=== PATIENT | female | born 1995 | race Caucasian/White ===

== ENCOUNTER 2022-09-13 06:07 | Emergency (ER) | payer MEDICAID, SELFPAY ==
[2022-09-13 06:30] VITALS: BP 157/79; PULSE 90; RESP 16; TEMP 36.8; O2SAT 98; BMI 38.2
[2022-09-13 06:33] VITALS: BP 157/79; PULSE 90; RESP 16; TEMP 36.8; O2SAT 98
--- NOTE | 2022-09-13 06:37 | PC.NURSE ---
Pt c/o nausea/vomiting x4 days, diarrhea starting today. Pt has not been able to hold food down. Also complaining of slight chest pain and abdominal discomfort. Pt presents to ER A&Ox4, GCS 15, with warm, dry skin. Pt is requesting a test as her and her boyfriend are unsafe. Test ordered. Pt will be given zofran sublingual, per protocol. Waiting ED provider at this time.
[2022-09-13] MEDS: Ondansetron ODT 4 MG TAB.RAPDIS SUBLINGUAL (06:41)
[2022-09-13 06:52] LABS: MANUAL DIFF FLAG NO
[2022-09-13 06:54] LABS: Basophils Percent Auto 0.3 % (0-2); Eosinophils Absolute Auto 0.1 X10*3/uL (0.0-0.4); Eosinophils Percent Auto 1.5 % (0-4); Hematocrit 40.3 % (37.0-47.0); Hemoglobin 14.5 g/dl (12.0-16.0); Imm Gran Abs Auto 0.02 X10*3/uL (0.00-0.03); Imm Gran Pct Auto 0.2 % (0.0-0.4); Lymphocytes Absolute Auto 1.8 X10*3/uL (1.2-4.9); Lymphocytes Percent Auto 20.9 % (20-40); Mean Corpuscular Hemoglobin 29.6 pg (27.0-33.0); Mean Corpuscular Volume 82.2 fL (80.0-98.0); Monocytes Absolute Auto 0.5 X10*3/uL (0.1-1.2); Monocytes Percent Auto 5.8 % (2-11); Neutrophils Absolute Auto 6.2 x10*3/uL (2.0-8.3); Neutrophils Percent Auto 71.3 % (45-73); Platelet Count 303 X10*3/uL (160-400); Red Cell Distribution Width 12.8 % (11.0-16.0); White Blood Count 8.8 X10*3/uL (4.8-10.8)
[2022-09-13 06:55] LABS: Appearance Urine Clear; Color Urine DK YELLOW; Glucose Urine UA Negative (Negative); Leukocyte Esterase Urine Negative (Negative); Nitrite Urine Negative (Negative); Specific Gravity - Urine 1.025 (1.005-1.025); Urine Blood Negative (Negative); Urine Ketones 15 mg/dL (Negative); Urine Protein Negative (Neg-Trace)
[2022-09-13 06:56] LABS: UPreg QC Valid YES; Urine Pregnancy POSITIVE (NEGATIVE)
[2022-09-13 07:13] LABS: Alanine Aminotransferase 15 U/L (0-31); Albumin Level 4.3 g/dL (3.5-5.0); Alkaline Phosphatase 58 U/L (39-117); Anion Gap 11 (12-20); Aspartate Amino Transferase 14 U/L (5-31); Bilirubin Total 1.6 mg/dL (0.0-1.0); Blood Urea Nitrogen 8 mg/dL (9-16); Calcium 9.8 mg/dL (8.4-10.2); Carbon Dioxide 26 mmol/L (22-29); Chloride 104 mmol/L (96-108); Creatinine Clr Calc Pharmacy 158.2; Estimated Glomerular Filt Rate > 60; Glucose Random 103 mg/dL (60-115); Potassium 3.9 mmol/L (3.3-5.1); Sodium 137 mmol/L (135-145); Total Protein 7.5 g/dL (6.5-8.0)
--- NOTE | 2022-09-13 07:31 | ED.GENADULT ---
HPI - General Adult General Chief complaint: Nausea/Vomiting/Diarrhea Stated complaint: Nausea/ headache Time Seen by Provider: 09/13/22 06:57 Source: patient Mode of arrival: ambulatory Limitations: no limitations History of Present Illness HPI narrative: 27-year-old female history of obesity presenting to the emergency department fatigue, malaise, body aches and pains, diarrhea, headache (diffuse no visual changes) , associated with nausea and vomiting as well also reporting bilateral breast discomfort has been going on for the past few days. Patient tells me she has been trying to get however has had multiple negative home test. She tells me last menstrual period was a few weeks ago all. Patient denies fevers, chills, chest pain, shortness of breath, abd pain, vision changes, dizziness and weakness. No sick contacts. Related Data Previous Rx's Medication Instructions Recorded vit no.95-ferrous 1 tab PO DAILY #30 tabs 09/13/22 fumarate 28 mg-folic acid 800 mcg tablet () Allergies Allergy/AdvReac Type Severity Reaction Status Date / Time apple [APPLES] Allergy Intermediate Lip Unverified 03/29/22 08:41 numbness, Oral Numbness simon [CHERRIES] Allergy Intermediate LIP Unverified 11/13/19 16:30 NUMBNESS, Oral numbness, Oral numbness peach Allergy Intermediate Lip Unverified 03/29/22 08:41 numbness, Oral numbness Penicillins Allergy Intermediate HIVES TO Unverified 11/13/19 16:30 ALL CILLINS amoxicillin Allergy Unknown Hives Unverified 10/27/19 00:00 penicillin V Allergy Unknown Hives Unverified 10/27/19 00:00 Review of Systems Review of Systems: Constitutional : No Weight loss, No Fever, No Chills, + Fatigue, + Malaise ENT/Mouth : No sore throat, No Rhinorrhea Eyes: No Eye Pain, No Swelling, No Redness Cardiovascular : No Chest Pain, No SOB, No Dyspnea on Exertion, No Orthopnea, No Edema, No Palpitations Respiratory : No Cough, No Sputum, No Wheezing Gastrointestinal : + Nausea, + Vomiting, + Diarrhea, No Constipation, No abdominal Pain, No Hematochezia, No Melena Genitourinary : No Dysuria, No Urinary Frequency, No Hematuria, Musculoskeletal : No joint pain, + Myalgias, No Joint Swelling Skin : No Skin Lesions, No rash Neuro : No Weakness, No Numbness, No Dizziness, + Headache Psych : No Anxiety/Panic, No Depression All other systems reviewed and are negative Yes all other systems are reviewed and are negative [facility] Past Medical History Attestation statement: The following information was validated with the patient. Source: old records reviewed and nursing notes reviewed Social History Social History Alcohol intake: never Smoked in Last 30 Days: No Use of substances other than those prescribed or required for medical reasons: Yes Substance Use Type: Marijuana Substance Use Frequency: Daily Advance Directives: No Advance Directives Information Provided: Yes Physical Exam ED Vital Signs: Vital Signs - 24 hr 09/13/22 06:30 09/13/22 06:33 Temperature 98.2 F 98.2 F Pulse Rate 90 90 Respiratory Rate 16 16 Blood Pressure 157/79 H 157/79 H Pulse Oximetry 98 98 Oxygen Delivery Method Room Air Room Air BMI result Body Mass Index 38.2 vss Appearance: Alert.? Oriented X3.? No acute distress.? Head: Normocephalic, atraumatic, no step-offs or deformities Eyes: Pupils equal, round and reactive to light.? ENT: Pharynx normal.? Neck: Normal inspection.? Neck supple.? CVS: Normal heart rate and rhythm.? Pulses normal.? Respiratory: No respiratory distress.? Breath sounds normal.? Abdomen: Soft and nontender. Normal bowel sounds Skin: Skin warm and dry.? Normal skin color.? Normal skin turgor.? Extremities: No lower extremity edema.? No calf ttp. 5/5 strength to bilateral upper and lower extremities Neuro: Oriented X 3.? No motor deficit.? No sensory deficit. CN 2-12 intact . Normal snjgkc-xw-adsi, kyaf-dk-ehuu, steady tandem gait normal coordination. Negative Romberg, pronator drift. 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 Course Reevaluation(s) Reevaluation #1: Patient will be given Tylenol and Zofran for symptoms no that she is other medications have been canceled. CBC appears to be within normal limits. Chemistry unremarkable. Bilirubin is noted to be slightly elevated however no abdominal tenderness to palpation, likely normal variant and possibly secondary did . UA without infection. Urine positive. Patient is too early on to do an ultrasound to conform IUP however an hCG will be obtain. No signs of ectopic , miscarriage at this time. Patient to be discharged home with OBGYN follow-up, and vitamins. Patient symptoms likely secondary to and or viral illness. Time: 07:35 Reevaluation #2: HCG 54819 likely between 6-7 weeks. Patient will follow up with OBGYN. Time: 07:41 Medications Administered Discontinued Medications Generic Name Dose Route Start Last Admin Trade Name Freq PRN Reason Stop Dose Admin Ondansetron HCl 4 mg 09/13/22 06:35 09/13/22 06:41 Ondansetron Odt 4 Mg Tab.Rapdis SUBLINGUAL 09/13/22 06:36 4 mg ONCE ONE Administration Medical Decision Making Medical Decision Making [facility] Narrative: 0733 27-year-old female presents with fatigue, malaise, nausea, headache, body aches and pains, breast discomfort for the past few days. Physical examination benign. This is likely viral illness versus . Will rule out electrolyte abnormality, UTI although unlikely. No abdominal pain unlikely intra-abdominal etiology. No meningeal signs, no signs of intracranial hemorrhage, stroke, posterior stroke. Plan at this time viral testing, urine, test. Differential Diagnosis Differential Diagnoses: The differential diagnosis associated with the presentation includes This is likely viral illness versus . Will rule out electrolyte abnormality, UTI although unlikely. No abdominal pain unlikely intra-abdominal etiology. No meningeal signs, no signs of intracranial hemorrhage, stroke, posterior stroke. Admission/Observation Consideration of admission/observation: Escalation of care including admission/observation considered Unlikely Lab Data [facility] Lab Attestation statement: I reviewed the patient's lab results. 09/13/22 06:48 09/13/22 06:48 Labs: Lab Results 09/13/22 09/13/22 09/13/22 Range/Units 06:42 06:42 06:48 WBC 8.8 (4.8-10.8) X10*3/uL RBC 4.90 (4.20-5.50) X10*6/uL Hgb 14.5 (12.0-16.0) g/dl Hct 40.3 (37.0-47.0) % MCV 82.2 (80.0-98.0) fL MCH 29.6 (27.0-33.0) pg MCHC 36.0 H (31.0-35.0) g/dl RDW 12.8 (11.0-16.0) % Plt Count 303 (160-400) X10*3/uL MPV 9.0 L (9.4-12.3) fL Immature Gran % (Auto) 0.2 (0.0-0.4) % Neut % (Auto) 71.3 (45-73) % Lymph % (Auto) 20.9 (20-40) % [place] % (Auto) 5.8 (2-11) % Eos % (Auto) 1.5 (0-4) % Baso % (Auto) 0.3 (0-2) % Lymph # (Auto) 1.8 (1.2-4.9) X10*3/uL [place] # (Auto) 0.5 (0.1-1.2) X10*3/uL Eos # (Auto) 0.1 (0.0-0.4) X10*3/uL Baso # (Auto) 0.0 (0.0-0.2) X10*3/uL Abs Immat Gran (auto) 0.02 (0.00-0.03) X10*3/uL Absolute Neuts (auto) 6.2 (2.0-8.3) x10*3/uL Absolute Nucleated RBC 0.000 (0.0-0.012) X10*3/uL Nucleated RBC % (auto) 0.0 (0.0-0.2) /100WBC Sodium (135-145) mmol/L Potassium (3.3-5.1) mmol/L Chloride (96-108) mmol/L Carbon Dioxide (22-29) mmol/L Anion Gap (12-20) BUN (9-16) mg/dL Creatinine (0.5-1.4) mg/dL Estim Creat Clear Calc Estimated GFR Random Glucose (60-115) mg/dL Calcium (8.4-10.2) mg/dL Total Bilirubin (0.0-1.0) mg/dL AST (5-31) U/L ALT (0-31) U/L Alkaline Phosphatase (39-117) U/L Total Protein (6.5-8.0) g/dL Albumin (3.5-5.0) g/dL Urine Color DK YELLOW Urine Appearance Clear Urine pH 6.0 (5.0-9.0) Ur Specific [place] 1.025 (1.005-1.025) Urine Protein Negative (Neg-Trace) mg/dL Urine Glucose (UA) Negative (Negative) mg/dL Urine Ketones 15 (Negative) mg/dL Urine Blood Negative (Negative) Urine Nitrite Negative (Negative) Ur Leukocyte Esterase Negative (Negative) Urine Test POSITIVE H (NEGATIVE) 09/13/22 Range/Units 06:48 WBC (4.8-10.8) X10*3/uL RBC (4.20-5.50) X10*6/uL Hgb (12.0-16.0) g/dl Hct (37.0-47.0) % MCV (80.0-98.0) fL MCH (27.0-33.0) pg MCHC (31.0-35.0) g/dl RDW (11.0-16.0) % Plt Count (160-400) X10*3/uL MPV (9.4-12.3) fL Immature Gran % (Auto) (0.0-0.4) % Neut % (Auto) (45-73) % Lymph % (Auto) (20-40) % [place] % (Auto) (2-11) % Eos % (Auto) (0-4) % Baso % (Auto) (0-2) % Lymph # (Auto) (1.2-4.9) X10*3/uL [place] # (Auto) (0.1-1.2) X10*3/uL Eos # (Auto) (0.0-0.4) X10*3/uL Baso # (Auto) (0.0-0.2) X10*3/uL Abs Immat Gran (auto) (0.00-0.03) X10*3/uL Absolute Neuts (auto) (2.0-8.3) x10*3/uL Absolute Nucleated RBC (0.0-0.012) X10*3/uL Nucleated RBC % (auto) (0.0-0.2) /100WBC Sodium 137 (135-145) mmol/L Potassium 3.9 (3.3-5.1) mmol/L Chloride 104 (96-108) mmol/L Carbon Dioxide 26 (22-29) mmol/L Anion Gap 11 L (12-20) BUN 8 L (9-16) mg/dL Creatinine 0.73 (0.5-1.4) mg/dL Estim Creat Clear Calc 158.2 Estimated GFR > 60 Random Glucose 103 (60-115) mg/dL Calcium 9.8 (8.4-10.2) mg/dL Total Bilirubin 1.6 H (0.0-1.0) mg/dL AST 14 (5-31) U/L ALT 15 (0-31) U/L Alkaline Phosphatase 58 (39-117) U/L Total Protein 7.5 (6.5-8.0) g/dL Albumin 4.3 (3.5-5.0) g/dL Urine Color Urine Appearance Urine pH (5.0-9.0) Ur Specific [place] (1.005-1.025) Urine Protein (Neg-Trace) mg/dL Urine Glucose (UA) (Negative) mg/dL Urine Ketones (Negative) mg/dL Urine Blood (Negative) Urine Nitrite (Negative) Ur Leukocyte Esterase (Negative) Urine Test (NEGATIVE) Prescription Management I considered prescription management with: Other ( vitamins) Core Measures AMI core measures followed: Yes Measure exclusions: not indicated Critical Care Time Critical Care Time Critical Care Time: No Discharge Plan Discharge Clinical Impression: , Headache, Nausea Patient Disposition: Home, Self-Care Instructions: (ED), Acute Headache (ED), Acute Nausea and Vomiting (ED) Additional Instructions: Take your medications as prescribed. If you were prescribed antibiotics today, it is important that you take your medication to their entirety, do not skip any doses, do not finish them early. Follow-up with your primary care provider this week. Return to the emergency department with new or worsening symptoms. Such as fevers, chills, chest pain, shortness of breath, nausea, vomiting, dizziness, headache, vision changes, lethargy In case of emergency call 911 vitamins have been sent to her pharmacy, please take these daily. Your urine was positive, it is too soon to obtain an ultrasound to confirm intrauterine should follow-up with OBGYN, call today to schedule an appointment. Return with any red flag symptoms such as abdominal pain, vaginal bleeding. Or with any abdominal trauma. Your BHCG was [address] which means your between 6-7 weeks Prescriptions: New PNV cmb#95-ferrous fumarate-FA [] 28 mg iron- 800 mcg tablet 1 tab PO DAILY Qty: 30 0RF Referrals: Physician,None [Primary Care Provider] - 2 days Ruben Jacobson MD [Physician] - 1 day
== END 2022-09-13 07:54 | disposition home or self-care (01) ==
PROVIDERS: Emergency Provider Emergency Medicine
DX: R51.9 Headache, unspecified (principal); R11.2 Nausea with vomiting, unspecified; R19.7 Diarrhea, unspecified; Z33.1 Pregnant state, incidental; F12.90 Cannabis use, unspecified, uncomplicated
CPT/HCPCS: 36415; 80053; 81003; 81025; 84702; 85025; 99283; 99284

== ENCOUNTER 2022-09-17 00:27 | Emergency (ER) | payer MEDICAID, SELFPAY ==
--- NOTE | ~2022-09-17 | US_ITS ---
EXAMINATION: US OBSTETRICAL ULTRASOUND CLINICAL INFORMATION: Question ectopic COMPARISON: None available. LMP: 07/20/2022. Gestational age by maternal dates is 8 weeks 3 days. Estimated date of delivery by maternal dates is 04/26/2023. TECHNIQUE: Transabdominal and transvaginal first trimester OB ultrasound. Transvaginal exam was performed for better visualization of the gestational sac. FINDINGS: There is a single intrauterine gestational sac with visible yolk sac, embryo/fetus, and cardiac activity. There is no significant subchorionic hemorrhage or hematoma. HR: 161 beats per minute. CRL (crown rump length): 0.92 cm (7 weeks 0 days +/- 4 days). TEVIN (estimated date of delivery): 05/06/2023 +/- 4 days. MATERNAL ADNEXA: The right maternal ovary is not seen. Left ovary is not well visualized. The left maternal ovary measures 2.3 x 1.2 x 1.1 cm. There is no significant maternal adnexal mass. No maternal pelvic ascites. US/US OB <= 14 weeks fetus IMPRESSION: 1. Single intrauterine gestation with ultrasound gestational age of 7 weeks 0 days +/- 4 days. 2. Estimated date of delivery is 05/06/2023 +/- 4 days. 3. Right ovary not seen.
[2022-09-17 00:30] VITALS: BP 152/88; PULSE 94; RESP 20; TEMP 36.8; O2SAT 100; BMI 36.8
[2022-09-17 01:49] LABS: Basophils Percent Auto 0.1 % (0-2); Eosinophils Percent Auto 0.1 % (0-4); Hematocrit 38.2 % (37.0-47.0); Hemoglobin 13.9 g/dl (12.0-16.0); Imm Gran Abs Auto 0.04 X10*3/uL (0.00-0.03); Imm Gran Pct Auto 0.3 % (0.0-0.4); Lymphocytes Absolute Auto 0.7 X10*3/uL (1.2-4.9); MANUAL DIFF FLAG SCAN; Mean Corpuscular HGB Conc 36.4 g/dl (31.0-35.0); Mean Corpuscular Hemoglobin 29.6 pg (27.0-33.0); Mean Corpuscular Volume 81.3 fL (80.0-98.0); Mean Platelet Volume 9.2 fL (9.4-12.3); Monocytes Absolute Auto 0.2 X10*3/uL (0.1-1.2); Monocytes Percent Auto 1.1 % (2-11); Neutrophils Percent Auto 93.4 % (45-73); Platelet Count 302 X10*3/uL (160-400); Red Cell Distribution Width 12.6 % (11.0-16.0); SCAN SMEAR FLAG 1
[2022-09-17 01:50] LABS: Appearance Urine Clear; Color Urine Dark Yellow; Glucose Urine UA Negative (Negative); Leukocyte Esterase Urine Negative (Negative); Nitrite Urine Negative (Negative); PH 5.5 (5.0-9.0); Specific Gravity - Urine >= 1.030 (1.005-1.025); UMIC TRIGGER UACC YES; Urine Blood Negative (Negative); Urine Ketones >=160 mg/dL (Negative); Urine Protein 100 (2+) mg/dL (Neg-Trace)
[2022-09-17 01:51] LABS: UPreg QC Valid YES; Urine Pregnancy POSITIVE (NEGATIVE)
[2022-09-17 01:53] LABS: Bacteria Urine None Seen (None Seen); Hyaline Casts Urine 0-2 /LPF (0-2); RBC Urine 0-2 /HPF (0-2); WBC Urine 0-5 /HPF (0-5)
[2022-09-17 02:07] LABS: Alanine Aminotransferase 23 U/L (0-31); Albumin Level 4.5 g/dL (3.5-5.0); Alkaline Phosphatase 58 U/L (39-117); Anion Gap 16 (12-20); Aspartate Amino Transferase 19 U/L (5-31); Bilirubin Total 0.8 mg/dL (0.0-1.0); Blood Urea Nitrogen 8 mg/dL (9-16); Calcium 9.9 mg/dL (8.4-10.2); Carbon Dioxide 22 mmol/L (22-29); Chloride 104 mmol/L (96-108); Creatinine Clr Calc Pharmacy 161.8; Estimated Glomerular Filt Rate > 60; Glucose Random 140 mg/dL (60-115); Potassium 3.8 mmol/L (3.3-5.1); Sodium 138 mmol/L (135-145); Total Protein 7.9 g/dL (6.5-8.0)
[2022-09-17 02:38] LABS: SLIDE REVIEW VERIFIED
--- NOTE | 2022-09-17 03:07 | ED_ITS ---
HPI - Nausea/Vomiting/Diarrhea General Chief complaint: OB Stated complaint: Vomiting Time Seen by Provider: 09/17/22 03:01 Source: patient Mode of arrival: ambulatory Limitations: no limitations History of Present Illness HPI Narrative: Patient about 7 weeks primi comes here for increased vomiting since 1 6:00 last night unable to hold any solid down or liquids no significant abdominal pain Related Data Previous Rx's Medication Instructions Recorded vit no.95-ferrous 1 tab PO DAILY #30 tabs 09/13/22 fumarate 28 mg-folic acid 800 mcg tablet () ondansetron 4 mg disintegrating 4 mg PO Q6-8H PRN nausea and 09/17/22 tablet vomiting #20 tabs pyridoxine (vitamin B6) 25 mg 25 mg PO TID PRN nausea and 09/17/22 tablet vomiting #60 tabs Allergies Allergy/AdvReac Type Severity Reaction Status Date / Time apple [APPLES] Allergy Intermediate Lip Unverified 03/29/22 08:41 numbness, Oral Numbness simon [CHERRIES] Allergy Intermediate LIP Unverified 11/13/19 16:30 NUMBNESS, Oral numbness, Oral numbness peach Allergy Intermediate Lip Unverified 03/29/22 08:41 numbness, Oral numbness Penicillins Allergy Intermediate HIVES TO Unverified 11/13/19 16:30 ALL CILLINS amoxicillin Allergy Unknown Hives Unverified 10/27/19 00:00 penicillin V Allergy Unknown Hives Unverified 10/27/19 00:00 Review of Systems Review of Systems: Yes all other systems are reviewed and are negative [facility] Social History Social History Alcohol intake: never Smoked in Last 30 Days: No Use of substances other than those prescribed or required for medical reasons: No Substance Use Type: Marijuana Advance Directives: No Advance Directives Information Provided: Yes Patient : Yes Physical Exam Vital Signs: Vital Signs: Last Vital Signs Temp 98.1 F 09/17/22 05:39 Pulse 90 09/17/22 05:39 Resp 14 09/17/22 05:39 BP 149/86 H 09/17/22 05:39 Pulse Ox 96 09/17/22 05:39 O2 Del Method Room Air 09/17/22 05:39 BMI result Body Mass Index 36.8 Appearance: Alert. Oriented X3. No acute distress. Eyes: No pallor/ icterus ENT: Pharynx normal. Oral Mucosa moist Neck: Normal inspection. Neck supple. CVS: Normal heart rate and rhythm. Pulses normal. Respiratory: No respiratory distress. Equal air entry bilateral, no wheezing/rales/rhonchi Abdomen: Soft mild epigastric tenderness. Bowel sounds are present, no mass palpable, no CVA tenderness Skin: Skin warm and dry. Normal skin color. Normal skin turgor. Extremities: No lower extremity edema. No calf tenderness Neuro: Oriented X 3. No motor deficit. No sensory deficit.No cerebellar signs , cranial nerves II-XII intact Medications Administered Discontinued Medications Generic Name Dose Route Start Last Admin Trade Name Freq PRN Reason Stop Dose Admin Al Hydroxide/Mg Hydroxide 30 ml 09/17/22 04:35 09/17/22 04:57 Magnesium Hydrox/Alum Hydrox 30 Ml Oral.Susp PO 09/17/22 04:36 30 ml ONCE ONE Administration Famotidine 20 mg 09/17/22 04:35 09/17/22 04:57 Famotidine/Pf 20 Mg/2 Ml Vial IVPUSH 09/17/22 04:36 20 mg ONCE ONE Administration Sodium Chloride 1,000 mls @ 999 mls/hr 09/17/22 03:13 09/17/22 05:39 Ns IV 09/17/22 04:13 Infused .Q1H1M ONE Infusion Ondansetron HCl 4 mg 09/17/22 03:13 09/17/22 03:25 Ondansetron Hcl 4 Mg/2 Ml Vial IVPUSH 09/17/22 03:14 4 mg ONCE ONE Administration Medical Decision Making Medical Decision Making [facility] Narrative: Patient with hyperemesis gravidarum 1st received IV fluids and Zofran still vomiting will give another dose of Zofran another L bolus re-evaluated before discharge signed out to Dr MERAZ Lab Data [facility] Lab Attestation statement: I reviewed the patient's lab results. 09/17/22 01:42 09/17/22 01:42 Labs: Lab Results 09/17/22 09/17/22 09/17/22 Range/Units 01:42 01:42 01:43 WBC 14.0 H (4.8-10.8) X10*3/uL RBC 4.70 (4.20-5.50) X10*6/uL Hgb 13.9 (12.0-16.0) g/dl Hct 38.2 (37.0-47.0) % MCV 81.3 (80.0-98.0) fL MCH 29.6 (27.0-33.0) pg MCHC 36.4 H (31.0-35.0) g/dl RDW 12.6 (11.0-16.0) % Plt Count 302 (160-400) X10*3/uL MPV 9.2 L (9.4-12.3) fL Immature Gran % (Auto) 0.3 (0.0-0.4) % Neut % (Auto) 93.4 H (45-73) % Lymph % (Auto) 5.0 L (20-40) % [place] % (Auto) 1.1 L (2-11) % Eos % (Auto) 0.1 (0-4) % Baso % (Auto) 0.1 (0-2) % Lymph # (Auto) 0.7 L (1.2-4.9) X10*3/uL [place] # (Auto) 0.2 (0.1-1.2) X10*3/uL Eos # (Auto) 0.0 (0.0-0.4) X10*3/uL Baso # (Auto) 0.0 (0.0-0.2) X10*3/uL Abs Immat Gran (auto) 0.04 H (0.00-0.03) X10*3/uL Absolute Neuts (auto) 13.0 H (2.0-8.3) x10*3/uL Absolute Nucleated RBC 0.000 (0.0-0.012) X10*3/uL Nucleated RBC % (auto) 0.0 (0.0-0.2) /100WBC Smear Tech's Comments VERIFIED Sodium 138 (135-145) mmol/L Potassium 3.8 (3.3-5.1) mmol/L Chloride 104 (96-108) mmol/L Carbon Dioxide 22 (22-29) mmol/L Anion Gap 16 (12-20) BUN 8 L (9-16) mg/dL Creatinine 0.70 (0.5-1.4) mg/dL Estim Creat Clear Calc 161.8 Estimated GFR > 60 Random Glucose 140 H (60-115) mg/dL Calcium 9.9 (8.4-10.2) mg/dL Total Bilirubin 0.8 (0.0-1.0) mg/dL AST 19 (5-31) U/L ALT 23 (0-31) U/L Alkaline Phosphatase 58 (39-117) U/L Total Protein 7.9 (6.5-8.0) g/dL Albumin 4.5 (3.5-5.0) g/dL Urine Color Dark Yellow Urine Appearance Clear Urine pH 5.5 (5.0-9.0) Ur Specific [place] >= 1.030 H (1.005-1.025) Urine Protein 100 (2+) H (Neg-Trace) mg/dL Urine Glucose (UA) Negative (Negative) mg/dL Urine Ketones >=160 (Negative) mg/dL Urine Blood Negative (Negative) Urine Nitrite Negative (Negative) Ur Leukocyte Esterase Negative (Negative) Urine RBC 0-2 (0-2) /HPF Urine WBC 0-5 (0-5) /HPF Ur Squamous Epith Cells 3-5 (0-2) /HPF Urine Bacteria None Seen (None Seen) Hyaline Casts 0-2 (0-2) /LPF Urine Test (NEGATIVE) 09/17/22 Range/Units 01:43 WBC (4.8-10.8) X10*3/uL RBC (4.20-5.50) X10*6/uL Hgb (12.0-16.0) g/dl Hct (37.0-47.0) % MCV (80.0-98.0) fL MCH (27.0-33.0) pg MCHC (31.0-35.0) g/dl RDW (11.0-16.0) % Plt Count (160-400) X10*3/uL MPV (9.4-12.3) fL Immature Gran % (Auto) (0.0-0.4) % Neut % (Auto) (45-73) % Lymph % (Auto) (20-40) % [place] % (Auto) (2-11) % Eos % (Auto) (0-4) % Baso % (Auto) (0-2) % Lymph # (Auto) (1.2-4.9) X10*3/uL [place] # (Auto) (0.1-1.2) X10*3/uL Eos # (Auto) (0.0-0.4) X10*3/uL Baso # (Auto) (0.0-0.2) X10*3/uL Abs Immat Gran (auto) (0.00-0.03) X10*3/uL Absolute Neuts (auto) (2.0-8.3) x10*3/uL Absolute Nucleated RBC (0.0-0.012) X10*3/uL Nucleated RBC % (auto) (0.0-0.2) /100WBC Smear Tech's Comments Sodium (135-145) mmol/L Potassium (3.3-5.1) mmol/L Chloride (96-108) mmol/L Carbon Dioxide (22-29) mmol/L Anion Gap (12-20) BUN (9-16) mg/dL Creatinine (0.5-1.4) mg/dL Estim Creat Clear Calc Estimated GFR Random Glucose (60-115) mg/dL Calcium (8.4-10.2) mg/dL Total Bilirubin (0.0-1.0) mg/dL AST (5-31) U/L ALT (0-31) U/L Alkaline Phosphatase (39-117) U/L Total Protein (6.5-8.0) g/dL Albumin (3.5-5.0) g/dL Urine Color Urine Appearance Urine pH (5.0-9.0) Ur Specific [place] (1.005-1.025) Urine Protein (Neg-Trace) mg/dL Urine Glucose (UA) (Negative) mg/dL Urine Ketones (Negative) mg/dL Urine Blood (Negative) Urine Nitrite (Negative) Ur Leukocyte Esterase (Negative) Urine RBC (0-2) /HPF Urine WBC (0-5) /HPF Ur Squamous Epith Cells (0-2) /HPF Urine Bacteria (None Seen) Hyaline Casts (0-2) /LPF Urine Test POSITIVE H (NEGATIVE) Discharge Plan Discharge Clinical Impression: Hyperemesis gravidarum Patient Disposition: Still a Patient Instructions: Hyperemesis Gravidarum (ED) Additional Instructions: Drink plenty of fluids Medicine for nausea as prescribed Follow-up with your dispatcher clerk Prescriptions: New ondansetron 4 mg tablet,disintegrating 4 mg PO Q6-8H PRN (Reason: nausea and vomiting) Qty: 20 0RF pyridoxine (vitamin B6) 25 mg tablet 25 mg PO TID PRN (Reason: nausea and vomiting) Qty: 60 0RF No Action PNV cmb#95-ferrous fumarate-FA [] 28 mg iron- 800 mcg tablet 1 tab PO DAILY Qty: 30 0RF
[2022-09-17] MEDS: ondansetron HCL 4 MG/2 ML VIAL IVPUSH ×2 (03:25→07:01)
[2022-09-17] MEDS: 0.9 % Sodium Chloride 1,000 ML 999 ML IV ×3 (03:25→09:02)
[2022-09-17 03:30] VITALS: BP 149/83; PULSE 82; RESP 14; TEMP 37.1; O2SAT 96
[2022-09-17] MEDS: Famotidine/PF 20 MG/2 ML VIAL IVPUSH (04:57)
[2022-09-17] MEDS: Magnesium Hydrox/Alum Hydrox 30 ML ORAL.SUSP PO (04:57)
[2022-09-17 05:39] VITALS: BP 149/86; PULSE 90; RESP 14; TEMP 36.7; O2SAT 96
--- NOTE | 2022-09-17 05:41 | PC.NURSE ---
Pt reports headache improved. C/O lower abd cramping, 2/10. Able to tolerate PO apple juice with no N/V
[2022-09-17 08:08] VITALS: BP 155/77; PULSE 86; RESP 16; TEMP 36.8; O2SAT 99
[2022-09-17] MEDS: Metoclopramide HCl 10 MG/2 ML VIAL IVPUSH (09:02)
--- NOTE | 2022-09-17 09:14 | PC.NURSE ---
pt continues to vomit after attempting PO liquids and crackers.
--- NOTE | 2022-09-17 09:22 | PC.NURSE ---
pt off unit to U/S
== END 2022-09-17 12:18 | disposition home or self-care (01) ==
PROVIDERS: Internal Medicine; Emergency Provider Emergency Medicine Emergency Medical Services
DX: O21.0 Mild hyperemesis gravidarum (principal); O99.321 Drug use complicating pregnancy, first trimester; F12.90 Cannabis use, unspecified, uncomplicated; Z3A.01 Less than 8 weeks gestation of pregnancy
CPT/HCPCS: 36415; 76801; 80053; 81001; 81025; 84702; 85025; 96361; 96374; 96375; 96376; 99284; J2405; J2765

== ENCOUNTER 2022-09-21 08:31 | Outpatient (AMB) | payer MEDICAID, SELFPAY ==
[2022-09-21 08:47] VITALS: BP 140/108; BMI 35.7
--- NOTE | 2022-09-21 08:47 | A.OFFVIS_ITS ---
Intake Vital Signs 09/21/22 08:47 Height 5 ft 9 in Weight 242 lb BMI 35.7 BP 140/108 H Intake Visit Reasons: New patient consult dimitry Tong Intake Note: LMP 07/20/22 EDC 04/26/23 9w pt c/o n&v and chest pain The patient agreed to use of a manager medical writing during this encounter. Scribed for [employer] by Juli Song, manager medical writing, on 09/21/2022 at 9:15 am EST. Allergies apple [APPLES] Allergy (Intermediate, Verified 09/21/22 08:54) Lip numbness, Oral Numbness simon [CHERRIES] Allergy (Intermediate, Verified 09/21/22 08:54) LIP NUMBNESS, Oral numbness, Oral numbness peach Allergy (Intermediate, Verified 09/21/22 08:54) Lip numbness, Oral numbness Penicillins Allergy (Intermediate, Verified 09/21/22 08:54) HIVES TO ALL CILLINS amoxicillin Allergy (Unknown, Verified 09/21/22 08:54) Hives penicillin V Allergy (Unknown, Verified 09/21/22 08:54) Hives Is last menstrual period known: Yes Last menstrual period: 07/20/22 HPI HPI Comments History of Present Illness Details She is a new patient here for a consult. Corine Marmolejo, LMP 07/20/22 EDC 04/26/23 ~8w, who is actively vomiting in the office. Presents with her mother Ailce. She reports chest pain, acid reflux, headache, unable to keep anything down for the last day. Denies dizziness. Urine ketones positive. Seen in ED for hyperemesis on 09/17/22, and on 09/13/22 for: fatigue, malaise, body aches and pains, diarrhea, headache (diffuse no visual changes) , associated with nausea and vomiting as well also reporting bilateral breast discomfort has been going on for the past few days.? BP ranges for last visits: today-140/108, 09/17/22-149/86, 09/13/22-157/79. She is taking Zofran at home for nausea, OTD, and thinks she was not able to keep the am dose down today. [facility] Medical History (Updated 09/21/22 @ 11:00 by Juli Song) Acid reflux Asthma Elevated blood pressure reading Hyperemesis affecting , antepartum Missed menses Positive test Urine ketones Vomiting Surgical History (Updated 09/21/22 @ 08:56 by LUDMILA Montoya) History of tonsillectomy and adenoidectomy Family History (Updated 09/21/22 @ 08:56 by LUDMILA Montoya) Maternal Grandmother Colon cancer Social History (Updated 09/21/22 @ 08:57 by LUDMILA Montoya) Alcohol intake: never Patient Tobacco Use Status: Never used Tobacco Substance Use Type: Marijuana Advance Directives: No Female Reproductive History Menstrual Duration of menses: 6-7 days Date of last menstrual period: 07/20/22 Total pregnancies: 1 Physical Exam Vital Signs: Last Vital Signs BP 140/108 H 09/21/22 08:47 BMI result Body Mass Index 35.7 Const Other: actively nausea/vomiting in the office today. General: cooperative and awake Results AMB Urinalysis, Automated UA Leukoctes 0.5 Corinne/uL Last Edit by LUDMILA Montoya on 09/21/22 09:0 2 UA Nitrite Negative Last Edit by LUDMILA Montoya on 09/21/22 09:02 UA Urobilinogen 0.5 mg/dL Last Edit by LUDMILA Montoya on 09/21/22 09 :02 UA Protein 2 mg/dL Last Edit by LUDMILA Montoya on 09/21/22 09:02 UA pH 6.0 Last Edit by LUDMILA Montoya on 09/21/22 09:02 UA Blood 0.5 Antwon/uL Last Edit by LUDMILA Montoya on 09/21/22 09:02 UA Specific [place] 1.025 Last Edit by LUDMILA Montoya on 09/21/22 09:02 UA Ketone Positive Last Edit by LUDMILA Montoya on 09/21/22 09:02 3+ Bhavani Lipscomb 09/21/22 09:02 UA Bilirubin 0 mg/dL Last Edit by LUDMILA Montoya on 09/21/22 09:02 UA Glucose 0 mg/dL Last Edit by LUDMILA Montoya on 09/21/22 09:02 Results Reviewed Results Reviewed: Laboratory Last Values Urine pH (Auto) 6.0 09/21/22 09:01 Specific [place] (Auto) 1.025 09/21/22 09:01 Urine Protein (Auto) 2 mg/dL 09/21/22 09:01 Glucose (UA)(Auto) 0 mg/dL 09/21/22 09:01 Urine Ketones (Auto) Positive 09/21/22 09:01 Urine Blood (Auto) 0.5 Antwon/uL 09/21/22 09:01 Urine Nitrite (Auto) Negative 09/21/22 09:01 Urine Bilirubin (Auto) 0 mg/dL 09/21/22 09:01 Urine Urobilinogen (Auto) 0.5 mg/dL 09/21/22 09:01 Leukocyte Esterase (Auto) 0.5 Corinne/uL 09/21/22 09:01 Patient: Nicol Castellanos MR#: [id number] : 1995 Acct:[id number] Age/Sex: 27 / F ADM Date: 09/17/22 Loc: HO.ED Attending Dr: Ordering Physician: Rosemary Miles MD Date of Service: 09/17/22 Procedure(s): US OB <= 14 weeks fetus Accession Number(s): [id number] cc: Rosemary Miles MD~ EXAMINATION:? US OBSTETRICAL ULTRASOUND CLINICAL INFORMATION:? Question ectopic COMPARISON:? None available.? LMP: 07/20/2022. Gestational age by maternal dates is 8 weeks 3 days. Estimated date of delivery by maternal dates is 04/26/2023. TECHNIQUE: Transabdominal and transvaginal first trimester OB ultrasound. Transvaginal exam was performed for better visualization of the gestational sac. ? FINDINGS: There is a single intrauterine gestational sac with visible yolk sac, embryo/fetus, and cardiac activity.? There is no significant subchorionic hemorrhage or hematoma. HR:? 161 beats per minute. CRL (crown rump length): ? 0.92 cm (7 weeks 0 days +/- 4 days). TEVIN (estimated date of delivery):? 05/06/2023 +/- 4 days. ? MATERNAL ADNEXA: ? ? The right maternal ovary is not seen. Left ovary is not well visualized. The left maternal ovary measures 2.3 x 1.2 x 1.1 cm. There is no significant maternal adnexal mass.? No maternal pelvic ascites. US/US OB <= 14 weeks fetus IMPRESSION: 1. Single intrauterine gestation with ultrasound gestational age of? 7 weeks 0 days +/- 4 days. 2. Estimated date of delivery is 05/06/2023 +/- 4 days. 3. Right ovary not seen. Assessment & Plan Assessment & Plan (1) Missed menses: Code(s): N92.6 - Irregular menstruation, unspecified Plan: Discussed plan of care today: Return to ED for treatment and evaluation now. Accompanied by office staff to the ED via wheelchair due to her current symptoms of nausea, vomiting, chest pains, acid reflux, headache and elevated blood pressure at today's visit. All of her questions and concerns were addressed to the best of my ability and shared decision making. She is agreeable to plan of care. Reschedule consult TBD. (2) Positive test: Code(s): Z32.01 - Encounter for test, result positive (3) Elevated blood pressure reading: Code(s): R03.0 - Elevated blood-pressure reading, without diagnosis of hypertension (4) Vomiting: Code(s): R11.10 - Vomiting, unspecified (5) Acid reflux: Code(s): K21.9 - Gastro-esophageal reflux disease without esophagitis (6) Headache: Code(s): R51.9 - Headache, unspecified (7) Urine ketones: Code(s): R82.4 - Acetonuria Orders: Orders AMB Urinalysis Automated Today Z34.90 - Encounter for supervision of normal , unspecified, unspecified trimester Coding Level of Care Code New Pt Level 3 (12097) Diagnoses Missed menses N92.6 Positive test Z32.01 Elevated blood pressure reading R03.0 Vomiting R11.10 Acid reflux K21.9 Headache R51.9 Urine ketones R82.4
== END 2022-09-21 10:08 | disposition home or self-care (01) ==
LOC: HO.HWSW 08:31
PROVIDERS: Visit Provider Advanced Practice Midwife
DX: N92.6 Irregular menstruation, unspecified (principal); Z32.01 Encounter for pregnancy test, result positive; R03.0 Elevated blood-pressure reading, without diagnosis of hypertension; R11.10 Vomiting, unspecified; K21.9 Gastro-esophageal reflux disease without esophagitis; R51.9 Headache, unspecified; R82.4 Acetonuria; Z34.90 Encounter for supervision of normal pregnancy, unspecified, unspecified trimester
CPT/HCPCS: 99203

== ENCOUNTER → 2022-09-21 08:31 | Outpatient (BNVA) | payer MEDICAID, SELFPAY | PROVIDERS: Visit Provider Advanced Practice Midwife | DX: N92.6 Irregular menstruation, unspecified (principal); R03.0 Elevated blood-pressure reading, without diagnosis of hypertension; R11.10 Vomiting, unspecified; R51.9 Headache, unspecified; R82.4 Acetonuria; K21.9 Gastro-esophageal reflux disease without esophagitis; Z32.01 Encounter for pregnancy test, result positive | CPT/HCPCS: 81003; 99203 ==

== ENCOUNTER 2022-09-21 09:23 | Inpatient (IN) | payer MEDICAID, SELFPAY ==
--- NOTE | ~2022-09-21 | US_ITS ---
EXAMINATION: US ABDOMEN LIMITED CLINICAL INFORMATION: Abdominal pain, nausea and vomiting, 9 weeks . COMPARISON: None available. TECHNIQUE: Real-time imaging of the right upper quadrant abdominal viscera. FINDINGS: PANCREAS: Visualized portions of pancreas unremarkable, the tail is not well visualized. LIVER: Increased hepatic echogenicity suggesting hepatic steatosis. The liver is normal in size. The liver contour is normal. No focal hepatic lesion. There is no intrahepatic biliary duct dilatation seen. GALLBLADDER: Intraluminal gallbladder sludge noted. The gallbladder is physiologically distended without evidence of stones, polyps, wall thickening or pericholecystic fluid. Sonographic Brown sign is negative. COMMON BILE DUCT: Normal in caliber measuring 0.2 cm in diameter. RIGHT KIDNEY: Normal. No hydronephrosis. No renal calculi or focal parenchymal lesions. The kidney measures 12.4 cm in maximum dimension. FREE FLUID: None. US/US abdomen limited IMPRESSION: 1. Increased hepatic echogenicity suggesting hepatic steatosis. 2. Intraluminal gallbladder sludge noted without sonographic evidence of acute cholecystitis.
[2022-09-21 09:34] VITALS: BP 156/103; PULSE 95; RESP 19; TEMP 35.9; O2SAT 100; BMI 35.9
--- NOTE | 2022-09-21 09:45 | ECG_ITS ---
Test Reason : HYPERTENSION Blood Pressure : / mmHG Vent. Rate : 062 BPM Atrial Rate : 062 BPM P-R Int : 122 ms QRS Dur : 100 ms QT Int : 458 ms P-R-T Axes : 043 068 005 degrees QTc Int : 464 ms Sinus rhythm with marked sinus arrhythmia Nonspecific ST abnormality When compared with ECG of 15-NOV-2013 23:00, No significant change was found Referred By: Generic ED Physician Electronically Signed By:AGUS DESAI MD
[2022-09-21 11:13] LABS: MANUAL DIFF FLAG NO
[2022-09-21 11:22] LABS: Basophils Percent Auto 0.3 % (0-2); Eosinophils Percent Auto 0.1 % (0-4); Hematocrit 41.6 % (37.0-47.0); Hemoglobin 15.2 g/dl (12.0-16.0); Imm Gran Abs Auto 0.03 X10*3/uL (0.00-0.03); Imm Gran Pct Auto 0.2 % (0.0-0.4); Lymphocytes Absolute Auto 1.3 X10*3/uL (1.2-4.9); Lymphocytes Percent Auto 9.1 % (20-40); Mean Corpuscular HGB Conc 36.5 g/dl (31.0-35.0); Mean Corpuscular Hemoglobin 29.3 pg (27.0-33.0); Mean Corpuscular Volume 80.3 fL (80.0-98.0); Mean Platelet Volume 9.6 fL (9.4-12.3); Monocytes Absolute Auto 0.7 X10*3/uL (0.1-1.2); Monocytes Percent Auto 4.8 % (2-11); Neutrophils Absolute Auto 11.9 x10*3/uL (2.0-8.3); Neutrophils Percent Auto 85.5 % (45-73); Platelet Count 323 X10*3/uL (160-400); Red Blood Count 5.18 X10*6/uL (4.20-5.50); Red Cell Distribution Width 12.2 % (11.0-16.0); White Blood Count 13.9 X10*3/uL (4.8-10.8)
[2022-09-21 11:29] LABS: Alanine Aminotransferase 75 U/L (0-31); Albumin Level 4.2 g/dL (3.5-5.0); Alkaline Phosphatase 47 U/L (39-117); Anion Gap 18 (12-20); Aspartate Amino Transferase 33 U/L (5-31); Blood Urea Nitrogen 9 mg/dL (9-16); Calcium 9.7 mg/dL (8.4-10.2); Carbon Dioxide 18 mmol/L (22-29); Chloride 103 mmol/L (96-108); Creatinine Clr Calc Pharmacy 166.8; Estimated Glomerular Filt Rate > 60; Glucose Random 106 mg/dL (60-115); Potassium 3.2 mmol/L (3.3-5.1); Sodium 136 mmol/L (135-145); Total Protein 7.5 g/dL (6.5-8.0)
--- NOTE | 2022-09-21 12:26 | ED_ITS ---
HPI - General Adult General Chief complaint: General Medical Stated complaint: vomiting high bp Time Seen by Provider: 09/21/22 12:25 Source: patient Mode of arrival: ambulatory Limitations: no limitations History of Present Illness HPI narrative: 27-year-old female , 7 weeks 4 days based on ultrasound EDC 05/06/2023 who presents emergency department for evaluation of nausea, vomiting, abdominal pain and elevated blood pressure. The patient was seen here in the emergency department on 09/17/2022 for nausea vomiting and abdominal pain. She was treated with IV fluids and Zofran and discharged home with Zofran ODT. Patient had an ultrasound of that time which revealed a single intrauterine which was 7 weeks and 0 days with an EDC of 05/06/2023. Patient states that since being discharged from the emergency department she has continued to vomit. She states she has had multiple episodes of vomiting per day and has been only able to hold on small amounts of fluid with very minimal food intake. The patient was seen today for an OBGYN follow-up 2 day. I did review the notes, the patient had an elevated blood pressure of 140/108 and was referred to the emergency department for further evaluate. She denied fever, she states she was having occasional chills. She has had persistent nausea, vomiting and diarrhea. She denied dysuria but has noted urinary frequency. Related Data Previous Rx's Medication Instructions Recorded vit no.95-ferrous 1 tab PO DAILY #30 tabs 09/13/22 fumarate 28 mg-folic acid 800 mcg tablet () ondansetron 4 mg disintegrating 4 mg PO Q6-8H PRN nausea and 09/17/22 tablet vomiting #20 tabs pyridoxine (vitamin B6) 25 mg 25 mg PO TID PRN nausea and 09/17/22 tablet vomiting #60 tabs Allergies Allergy/AdvReac Type Severity Reaction Status Date / Time apple [APPLES] Allergy Intermediate Lip Verified 09/21/22 08:54 numbness, Oral Numbness simon [CHERRIES] Allergy Intermediate LIP Verified 09/21/22 08:54 NUMBNESS, Oral numbness, Oral numbness peach Allergy Intermediate Lip Verified 09/21/22 08:54 numbness, Oral numbness Penicillins Allergy Intermediate HIVES TO Verified 09/21/22 08:54 ALL CILLINS amoxicillin Allergy Unknown Hives Verified 09/21/22 08:54 penicillin V Allergy Unknown Hives Verified 09/21/22 08:54 Review of Systems Review of Systems: Yes all other systems are reviewed and are negative [facility] Past Medical History [facility] Narrative: Past medical history: The patient denies tobacco, alcohol and drug use. Medical History Acid reflux Asthma Elevated blood pressure reading Hyperemesis affecting , antepartum Missed menses Positive test Urine ketones Vomiting Surgical History History of tonsillectomy and adenoidectomy Family History Family History Maternal Grandmother Colon cancer Social History Social History Alcohol intake: never Patient Tobacco Use Status: Never used Tobacco Substance Use Type: Marijuana Advance Directives: No Physical Exam ED Vital Signs: Vital Signs - 24 hr 09/21/22 09:34 09/21/22 13:08 09/21/22 15:25 Temperature 96.6 F L 99.4 F Pulse Rate 95 65 77 Respiratory Rate 19 18 18 Blood Pressure 156/103 H 154/80 H 154/99 H Pulse Oximetry 100 100 100 Oxygen Delivery Method Room Air Room Air Room Air BMI result Body Mass Index 35.9 Const Other: Awake, alert, female patient, pleasant, cooperative in no distress HENKY Head: Yes normal to inspection, Yes normocephalic and Yes atraumatic Ears: external ears normal General nose exam: Normal external nose present Face and sinus: Yes normal facial exam Mouth: Normal oral and palatal mucosa present Throat: Yes posterior oropharynx normal Eyes General: appearance normal, both eyes and all related structures Pupils: Equal, round and reactive pupils present Neck Neck: Yes normal visual inspection, Yes no lymphadenopathy, Yes trachea midline and Yes supple Chest Chest palpation & inspection: normal inspection of the chest and normal palpation of entire chest wall Resp Effort & Inspection: normal respiratory effort and able to speak in complete sentences Auscultation: clear to auscultation bilaterally Cardio Rate: regular rate Rhythm: regular rhythm Heart sounds: S1 normal heart sound present, S2 normal heart sound present and no murmurs GI Other: Patient's abdomen appears to be nondistended, she has normoactive bowel sounds, she has moderate epigastric tenderness with mild diffuse tenderness General: Yes no CVA tenderness Back/Spine/Pelvis Back: no CVA tenderness Skin General skin exam: no rashes or lesions noted Neuro Cranial nerves: Yes CN's II-XII intact bilaterally and Yes Equal, round and reactive pupils present Cognition (Neuro): normal cognition Motor exam (neuro): 5/5 motor strength present throughout Extrem General: Yes normal to inspection Psych Appearance: grossly normal Speech and movement: Normal speech and movement present Affect: normal affect Attitude: cooperative Thought process: Normal thought process present Thought content: Normal thought content present Medications Administered Discontinued Medications Generic Name Dose Route Start Last Admin Trade Name Freq PRN Reason Stop Dose Admin Diphenhydramine HCl 50 mg 09/21/22 12:48 09/21/22 13:01 Diphenhydramine Hcl 50 Mg/Ml Vial IVPUSH 09/21/22 12:49 50 mg ONCE STA Administration Lactated Ringer's 1,000 mls @ 999 mls/hr 09/21/22 13:00 09/21/22 13:59 Lr IV 09/21/22 14:00 Infused .Q1H1M JAIME Infusion Lactated Ringer's 1,000 mls @ 999 mls/hr 09/21/22 13:00 09/21/22 15:08 Lr IV 09/21/22 14:00 Infused .Q1H1M JAIME Infusion Metoclopramide HCl 10 mg 09/21/22 12:48 09/21/22 13:01 Metoclopramide Hcl 10 Mg/2 Ml Vial IVPUSH 09/21/22 12:49 10 mg ONCE STA Administration Medical Decision Making Medical Decision Making MDM Narrative: 27-year-old female , 7 weeks and 4 days based on a EDC of 05/06/2023 determined by ultrasound done here in the emergency department on 09/17/2022 who was referred to the emergency department the OBGYN office for evaluation of continued nausea, vomiting, poor oral intake and elevated blood pressure. Patient's blood pressure in the emergency department was 156/103. Exam did reveal epigastric tenderness as well as diffuse abdominal tenderness. Following laboratory evaluation was ordered: CBC, CMP, urinalysis, 12 EKG. Patient will be placed on a cardiac, O2 saturation BP monitor. I ordered lactated Ringer's x2 L, Reglan and 10 mg IV and Benadryl 50 mg IV. 1626: The patient day given minimal improvement with the above treatment, she still has persistent nausea and is not able to drink fluids secondary to vomiting. Patient was ordered to get Zofran 4 mg IV. I did discuss the patient's presentation, elevated blood pressure and laboratory evaluation with Dr. Jacobson. He recommended the patient be admitted to the hospital service for intractable vomiting secondary to . He will consult as well. He does not want to treat the patient's elevated blood pressure at this time but wants the blood pressure monitor while she is hospitalized. I did discuss the patient over tiger text with the covering hospitalist, and the patient will be admitted to the hospital service for further management. 1635: Patient went to the bathroom and urinated. When she wiped herself with the toilet paper there was small amount of bright red blood on the toilet paper. I did order quantitative beta HCG, CBC and a type and screen. The patient does not have a viable I do not think that this changes are treatment at this time. Differential Diagnosis Differential diagnosis includes but is not limited to hyperemesis related to , GERD, gastritis, hypertension secondary to , preeclampsia, electrolyte abnormality, anemia, urinary tract infection Admission/Observation Consideration of admission/observation: Escalation of care including admission/observation considered Consult Healthcare Provider Management of the patient was discussed with: Hospitalist and Harbor Department Manager Lab Data MDM Lab Attestation statement: I reviewed the patient's lab results. My interpretation of patient's laboratory evaluation is as follows: Elevated WBC [id number] to , low potassium 3.2, low bicarb 18, elevated AST and ALT 33 and 75. Urinalysis positive for ketones, 2+ protein, 0.5 leukocyte esterase. 09/21/22 11:09 09/21/22 11:09 Labs: Lab Results 09/21/22 09/21/22 Range/Units 11:09 11:09 WBC 13.9 H (4.8-10.8) X10*3/uL RBC 5.18 (4.20-5.50) X10*6/uL Hgb 15.2 (12.0-16.0) g/dl Hct 41.6 (37.0-47.0) % MCV 80.3 (80.0-98.0) fL MCH 29.3 (27.0-33.0) pg MCHC 36.5 H (31.0-35.0) g/dl RDW 12.2 (11.0-16.0) % Plt Count 323 (160-400) X10*3/uL MPV 9.6 (9.4-12.3) fL Immature Gran % (Auto) 0.2 (0.0-0.4) % Neut % (Auto) 85.5 H (45-73) % Lymph % (Auto) 9.1 L (20-40) % Butler % (Auto) 4.8 (2-11) % Eos % (Auto) 0.1 (0-4) % Baso % (Auto) 0.3 (0-2) % Lymph # (Auto) 1.3 (1.2-4.9) X10*3/uL Butler # (Auto) 0.7 (0.1-1.2) X10*3/uL Eos # (Auto) 0.0 (0.0-0.4) X10*3/uL Baso # (Auto) 0.0 (0.0-0.2) X10*3/uL Abs Immat Gran (auto) 0.03 (0.00-0.03) X10*3/uL Absolute Neuts (auto) 11.9 H (2.0-8.3) x10*3/uL Absolute Nucleated RBC 0.000 (0.0-0.012) X10*3/uL Nucleated RBC % (auto) 0.0 (0.0-0.2) /100WBC Sodium 136 (135-145) mmol/L Potassium 3.2 L (3.3-5.1) mmol/L Chloride 103 (96-108) mmol/L Carbon Dioxide 18 L (22-29) mmol/L Anion Gap 18 (12-20) BUN 9 (9-16) mg/dL Creatinine 0.67 (0.5-1.4) mg/dL Estim Creat Clear Calc 166.8 Estimated GFR > 60 Random Glucose 106 (60-115) mg/dL Calcium 9.7 (8.4-10.2) mg/dL Total Bilirubin 1.0 (0.0-1.0) mg/dL AST 33 H (5-31) U/L ALT 75 H (0-31) U/L Alkaline Phosphatase 47 (39-117) U/L Total Protein 7.5 (6.5-8.0) g/dL Albumin 4.2 (3.5-5.0) g/dL Discharge Plan Discharge Patient Disposition: Admitted As Inpatient Prescriptions: No Action ondansetron 4 mg tablet,disintegrating 4 mg PO Q6-8H PRN (Reason: nausea and vomiting) Qty: 20 0RF pyridoxine (vitamin B6) 25 mg tablet 25 mg PO TID PRN (Reason: nausea and vomiting) Qty: 60 0RF PNV cmb#95-ferrous fumarate-FA [] 28 mg iron- 800 mcg tablet 1 tab PO DAILY Qty: 30 0RF
[2022-09-21] MEDS: Lactated Ringers 1,000 ML 999 ML IV ×2 (12:56→13:59)
[2022-09-21] MEDS: diphenhydrAMINE HCL 50 MG/ML VIAL IVPUSH (13:01)
[2022-09-21] MEDS: Metoclopramide HCl 10 MG/2 ML VIAL IVPUSH (13:01)
[2022-09-21 13:08] VITALS: BP 154/80; PULSE 65; RESP 18; O2SAT 100
[2022-09-21 15:25] VITALS: BP 154/99; PULSE 77; RESP 18; TEMP 37.4; O2SAT 100
--- NOTE | 2022-09-21 16:17 | P.CONOB_ITS ---
[employer] - CN: HPI Data of Consult Consult date: 09/21/22 Primary Care Provider: None Physician Consult Narrative Narrative: I was consulted on Nicol Castellanos who is a 27 year old female at 7 weeks 4 days by ultrasound done on 09/17/2022 giving her an EDC of 05/06/2023 was sent to the emergency department for evaluation of nausea, vomiting, abdominal pain and elevated blood pressure.? The patient was seen here in the emergency department on 09/17/2022 for nausea vomiting and abdominal pain.? She was treated with IV fluids and Zofran and discharged home with Zofran.? Patient had an ultrasound of that time which revealed a single intrauterine which was 7 weeks and 0 days with an EDC of 05/06/2023. Since then she continued to vomit.? She states she has had multiple episodes of vomiting per day and has been only able to hold on small amounts of fluid with very minimal food intake.?inm the ER the pt had an episode of potting cc:: CC: OB PMF Past Medical History Medical History Acid reflux Asthma Elevated blood pressure reading Hyperemesis affecting , antepartum Missed menses Positive test Urine ketones Vomiting Family History Family History Maternal Grandmother Colon cancer Surgical History Surgical History History of tonsillectomy and adenoidectomy Social History Social History Alcohol intake: never Patient Tobacco Use Status: Never used Tobacco Substance Use Type: Marijuana Advance Directives: No Meds Allergies Allergy/AdvReac Type Severity Reaction Status Date / Time apple [APPLES] Allergy Intermediate Lip Verified 09/21/22 08:54 numbness, Oral Numbness simon [CHERRIES] Allergy Intermediate LIP Verified 09/21/22 08:54 NUMBNESS, Oral numbness, Oral numbness peach Allergy Intermediate Lip Verified 09/21/22 08:54 numbness, Oral numbness Penicillins Allergy Intermediate HIVES TO Verified 09/21/22 08:54 ALL CILLINS amoxicillin Allergy Unknown Hives Verified 09/21/22 08:54 penicillin V Allergy Unknown Hives Verified 09/21/22 08:54 Active Medications: Current Medications Lactated Ringer's (Lr) 1,000 mls @ 125 mls/hr IVCONT .Q8H JAIME [employer] Physical Exam Vitals Vital signs: Temp Pulse Resp BP Pulse Ox O2 Del Method 99.4 F 77 18 154/99 H 100 Room Air 09/21/22 15:25 09/21/22 15:25 09/21/22 15:25 09/21/22 15:25 09/21/22 15:25 09/21/22 15:25 BMI result Body Mass Index 35.9 Abdomen Auscultation/Inspection/Palpation: Normal bowel sounds, Soft, Non-distended and No tenderness Female Genitalia (Pelvic) Exam: Deferred [employer] - Results Labs 09/21/22 11:09 09/21/22 11:09 Labs: Short CBC 09/21/22 Range/Units 11:09 WBC 13.9 H (4.8-10.8) X10*3/uL Hgb 15.2 (12.0-16.0) g/dl Hct 41.6 (37.0-47.0) % Plt Count 323 (160-400) X10*3/uL BMP 09/21/22 11:09 Sodium 136 Potassium 3.2 L Chloride 103 Carbon Dioxide 18 L BUN 9 Creatinine 0.67 Calcium 9.7 Liver Function 09/21/22 Range/Units 11:09 Total Bilirubin 1.0 (0.0-1.0) mg/dL AST 33 H (5-31) U/L ALT 75 H (0-31) U/L Alkaline Phosphatase 47 (39-117) U/L Albumin 4.2 (3.5-5.0) g/dL Assessment and Plan (1) Hyperemesis gravidarum: Status: Acute Admit as inpatient, NPO until vomiting resolves, then regular diet as tolerated, ambulate as tolerated. vitamin 1 tablet p.o. q.d. if not treated folic acid 400 mcg p.o. q.d. DVT prophylaxis, compression devices when in bed. TSH with reflex free T3 free T4. Chem 7 with magnesium calcium, correct electrolytes if abnormal; Potassium is at 3.2, recommend potassium supplementation. IV hydration, since AST/ALT are elevated, gallbladder ultrasound was ordered. Pepcid 20 mg IV b.i.d. Consider any of following anti emetics interchangeably with scheduled dosing and switch to another antiemetic if the patient does not respond: Dimenhydraminate 50 mg in 50 cc saline over 20 min IV Q 6 hours or Reglan 10 mg IV Q 8, or Promethazine 12.5-25 mg IV Q 4-6 hous , or chlorpromazine 25-50 mg IV Q 4-6 hours. Zofran as a last resort 4 mg IV Q 8 since it is associated with a risk of possible teratogenicity the 1st trimester of if all fail will consider methyprednisolone 16 mg orally or IV q 8 x3 days, then taper over 2 weeks with lower effective doses to limit for less than 6 weeks. Once nausea and vomiting is controlled switch to p.o. regimen with p.o. diet challenge, if tolerated discharge home on the same p.o. regimen with vitamin 1 tablet p.o. q.d.o. q.d. (2) Elevated blood pressure reading: Status: Acute It is unclear at this point in time if the patient is having elevated blood pressure secondary to straining from nausea and vomiting. Since her blood pressure is not in the severe range, systolic blood pressure < 160 and diastolic blood pressure is< 110 will observe blood pressure, After control of her nausea and vomiting, if there is evidence of persistent blood pressure equal or above 150 and over 110, will start the patient on antihypertensive either labetalol or Aldomet. (3) Spotting in first trimester: Status: Acute if rh neg , check ab screen if neg, rhogam 300 mcg IM, sab warnings given to the pt she is to let the staff know if cramping &/or bleeding occurs, US to be repeated in am. Time Spent With Patient Time: Total time managing care of this patient today ____ minutes.
[2022-09-21] MEDS: Lactated Ringers 1,000 ML 125 ML IVCONT (16:47)
[2022-09-21] MEDS: ondansetron HCL 4 MG/2 ML VIAL IVPUSH (16:48)
[2022-09-21] MEDS: Famotidine/PF 20 MG/2 ML VIAL IVPUSH (16:48)
--- NOTE | 2022-09-21 16:58 | PC.NURSE ---
patient alerted nurse that there was blood on napkin from wiping after urination, patient is 9 weeks . patient showed napkin which had pink tinge to it, no blood in toilet, no clots. patient had episode of vomiting, zofran given.
--- NOTE | 2022-09-21 17:40 | PM.IMHP ---
History of Present Illness Date of Service: 09/21/22 Chief Complaint: tractable vomiting 27-year-old female , 7 weeks 4 days based on ultrasound EDC 05/06/2023 who presents emergency department for evaluation of nausea, vomiting, abdominal pain and elevated blood pressure.? The patient was seen here in the emergency department on 09/17/2022 for nausea vomiting and abdominal pain.? She was treated with IV fluids and Zofran and discharged home with Zofran ODT.? Patient had an ultrasound of that time which revealed a single intrauterine which was 7 weeks and 0 days with an EDC of 05/06/2023.? Patient states that since being discharged from the emergency department she has continued to vomit.? She states she has had multiple episodes of vomiting per day and has been only able to hold on small amounts of fluid with very minimal food intake. Seen by OBGYN. . . Recommendations noted Review of Systems Review of Systems: denies chest pain Denies shortness of breath Admits to nausea and vomiting denies diarrhea Denies fever chills PMFSH Medical History Acid reflux Asthma Elevated blood pressure reading Hyperemesis affecting , antepartum Missed menses Positive test Urine ketones Vomiting Family History Maternal Grandmother Colon cancer Surgical History History of tonsillectomy and adenoidectomy Social History Alcohol intake: never Patient Tobacco Use Status: Never used Tobacco Substance Use Type: Marijuana Advance Directives: No Meds Allergies Allergy/AdvReac Type Severity Reaction Status Date / Time apple [APPLES] Allergy Intermediate Lip Verified 09/21/22 08:54 numbness, Oral Numbness simon [CHERRIES] Allergy Intermediate LIP Verified 09/21/22 08:54 NUMBNESS, Oral numbness, Oral numbness peach Allergy Intermediate Lip Verified 09/21/22 08:54 numbness, Oral numbness Penicillins Allergy Intermediate HIVES TO Verified 09/21/22 08:54 ALL CILLINS amoxicillin Allergy Unknown Hives Verified 09/21/22 08:54 penicillin V Allergy Unknown Hives Verified 09/21/22 08:54 Active Medications: Current Medications Lactated Ringer's (Lr) 1,000 mls @ 125 mls/hr IVCONT .Q8H [facility] Last Admin: 09/21/22 16:47 Dose: 125 mls/hr Sodium Chloride (0.9 % Sodium Chloride Flush 3 Ml Syringe) 3 ml IVFLUSH QSHIFT [facility] Physical Exam Vital Signs and Narrative: Vital Signs: Last Vital Signs Temp 99.4 F 09/21/22 15:25 Pulse 77 09/21/22 15:25 Resp 18 09/21/22 15:25 BP 154/99 H 09/21/22 15:25 Pulse Ox 100 09/21/22 15:25 O2 Del Method Room Air 09/21/22 15:25 BMI result Body Mass Index 35.9 Const: Other: awake alert ill-appe Resp: Other: clear to auscultation bilaterally no rales rhonchi or wheezes Cardio: Other: no S4; positive S1-S2; no S3 murmurs rubs or gallops GI: Other: soft nontender nondistended normoactive bowel sounds Neuro: Other: cranial nerves 2-12 grossly intact as tested. Motor is 5/5 all extremities sensation intact cognition appropriate Extrem: Other: no edema bilaterally Results Labs 09/21/22 11:09 09/21/22 11:09 Labs: Laboratory Results - last 24 hr 09/21/22 09/21/22 11:09 11:09 MCV 80.3 MCH 29.3 MCHC 36.5 H RDW 12.2 Plt Count 323 MPV 9.6 Immature Gran % (Auto) 0.2 Neut % (Auto) 85.5 H Lymph % (Auto) 9.1 L [place] % (Auto) 4.8 Eos % (Auto) 0.1 Baso % (Auto) 0.3 Lymph # (Auto) 1.3 [place] # (Auto) 0.7 Eos # (Auto) 0.0 Baso # (Auto) 0.0 Abs Immat Gran (auto) 0.03 Absolute Neuts (auto) 11.9 H Absolute Nucleated RBC 0.000 Nucleated RBC % (auto) 0.0 Anion Gap 18 Estim Creat Clear Calc 166.8 Estimated GFR > 60 Random Glucose 106 Calcium 9.7 Total Bilirubin 1.0 AST 33 H ALT 75 H Alkaline Phosphatase 47 Total Protein 7.5 Albumin 4.2 Assessment and Plan (1) Hyperemesis gravidarum: Status: Acute Plan 27-year-old female 7 weeks 4 days presents with intractable vomiting over the last 2 weeks. Seen by OBGYN and referred to ER. Seen in consultation by Dr. Indira Davis . Recommendations noted. She will be admitted for same 1. Hyperemesis gravidarum - Benadryl 50 mg and 50 cc is saline over 20 minutes IV q.6 alternating with Reglan 10 mg IV q.8 hours promethazine 25 mg IV q.4 to 6 hours. - Continuous IV fluids - OBGYN follow-up in a.m. by Dr. Jacobson pneumatics full code patient will require at least overnight admission for IV fluids and antiemetics. Further stay to be determined on response to therapies Time Spent With Patient Time: Total time managing care of this patient today ____ minutes. Quality Stroke Does the patient have a stroke diagnosis?: No VTE Prior VTE?: No VTE Risk Level:: Medical - moderate - high VTE Device Contraindication: N/A - Device Ordered VTE Drug Contraindication: Treatment Not Indicated
--- NOTE | 2022-09-21 17:42 | PHA.MEDREC ---
Pharmacy Consult ? Medication Reconciliation Pharmacy has completed the medication reconciliation. Patient confirmed all medication. Sandra Bynum, AlexD
[2022-09-21 17:49] VITALS: BP 149/90; PULSE 64; RESP 18; TEMP 37.2; O2SAT 99
[2022-09-21 17:51] LABS: MANUAL DIFF FLAG NO
[2022-09-21 17:53] LABS: Basophils Percent Auto 0.2 % (0-2); Eosinophils Percent Auto 0.3 % (0-4); Hematocrit 40.3 % (37.0-47.0); Hemoglobin 14.6 g/dl (12.0-16.0); Imm Gran Abs Auto 0.05 X10*3/uL (0.00-0.03); Imm Gran Pct Auto 0.3 % (0.0-0.4); Lymphocytes Absolute Auto 1.5 X10*3/uL (1.2-4.9); Lymphocytes Percent Auto 9.4 % (20-40); Mean Corpuscular HGB Conc 36.2 g/dl (31.0-35.0); Mean Corpuscular Hemoglobin 29.4 pg (27.0-33.0); Mean Corpuscular Volume 81.3 fL (80.0-98.0); Mean Platelet Volume 9.4 fL (9.4-12.3); Monocytes Absolute Auto 0.8 X10*3/uL (0.1-1.2); Monocytes Percent Auto 5.1 % (2-11); Neutrophils Absolute Auto 13.3 x10*3/uL (2.0-8.3); Neutrophils Percent Auto 84.7 % (45-73); Platelet Count 314 X10*3/uL (160-400); Red Blood Count 4.96 X10*6/uL (4.20-5.50); Red Cell Distribution Width 12.3 % (11.0-16.0); White Blood Count 15.6 X10*3/uL (4.8-10.8)
--- NOTE | 2022-09-21 18:02 | PC.NURSE ---
NO FURTHER VOMITING OR REPORTED VAGINAL BLEEDING
[2022-09-21 19:50] VITALS: BP 138/70; PULSE 67; RESP 16; TEMP 36.2; O2SAT 98
[2022-09-21 20:09] VITALS: BMI 37.1
[2022-09-21 23:31] VITALS: BP 120/62; PULSE 78; RESP 18; TEMP 36.3; O2SAT 97
[2022-09-22] MEDS: Lactated Ringers 1,000 ML 125 ML IVCONT ×3 (00:37→16:39)
[2022-09-22 02:38] VITALS: BP 125/62; PULSE 65; RESP 18; TEMP 36.5; O2SAT 98
[2022-09-22 07:24] VITALS: BP 135/65; PULSE 76; RESP 16; TEMP 36.6; O2SAT 96
--- NOTE | 2022-09-22 10:27 | P.PNOB_ITS ---
VISION SPECIALIST - Subjective Subjective Date of Service: 09/22/22 Interval history: Doing well no more nausea or vomiting, tolerated p.o. Jell-O this morning and feeling hungry. No vaginal spotting and/or cramping screen not done Abdominal/gallbladder ultrasound Subjective Findings: Ambulating well: Reports LIBRARY ACQUISITIONS TECHNICIAN Physical Exam Vitals Vital signs: Temp Pulse Resp BP Pulse Ox O2 Del Method 97.9 F 76 16 135/65 96 Room Air 09/22/22 07:24 09/22/22 07:24 09/22/22 07:24 09/22/22 07:24 09/22/22 07:24 09/22/22 07:24 BMI result Body Mass Index 37.1 Abdomen Auscultation/Inspection/Palpation: Normal bowel sounds, Soft, Non-distended and No tenderness VISION SPECIALIST - Prog Note: Results Labs 09/21/22 17:46 09/21/22 11:09 Labs: Laboratory Results - last 24 hr 09/21/22 09/21/22 09/21/22 11:09 11:09 17:46 WBC 13.9 H RBC 5.18 Hgb 15.2 Hct 41.6 MCV 80.3 MCH 29.3 MCHC 36.5 H RDW 12.2 Plt Count 323 MPV 9.6 Immature Gran % (Auto) 0.2 Neut % (Auto) 85.5 H Lymph % (Auto) 9.1 L [place] % (Auto) 4.8 Eos % (Auto) 0.1 Baso % (Auto) 0.3 Lymph # (Auto) 1.3 [place] # (Auto) 0.7 Eos # (Auto) 0.0 Baso # (Auto) 0.0 Abs Immat Gran (auto) 0.03 Absolute Neuts (auto) 11.9 H Absolute Nucleated RBC 0.000 Nucleated RBC % (auto) 0.0 Sodium 136 Potassium 3.2 L Chloride 103 Carbon Dioxide 18 L Anion Gap 18 BUN 9 Creatinine 0.67 Estim Creat Clear Calc 166.8 Estimated GFR > 60 Random Glucose 106 Calcium 9.7 Total Bilirubin 1.0 AST 33 H ALT 75 H Alkaline Phosphatase 47 Total Protein 7.5 Albumin 4.2 Beta HCG, Quant [id number] 09/21/22 17:46 WBC 15.6 H RBC 4.96 Hgb 14.6 Hct 40.3 MCV 81.3 MCH 29.4 MCHC 36.2 H RDW 12.3 Plt Count 314 MPV 9.4 Immature Gran % (Auto) 0.3 Neut % (Auto) 84.7 H Lymph % (Auto) 9.4 L [place] % (Auto) 5.1 Eos % (Auto) 0.3 Baso % (Auto) 0.2 Lymph # (Auto) 1.5 [place] # (Auto) 0.8 Eos # (Auto) 0.0 Baso # (Auto) 0.0 Abs Immat Gran (auto) 0.05 H Absolute Neuts (auto) 13.3 H Absolute Nucleated RBC 0.000 Nucleated RBC % (auto) 0.0 Sodium Potassium Chloride Carbon Dioxide Anion Gap BUN Creatinine Estim Creat Clear Calc Estimated GFR Random Glucose Calcium Total Bilirubin AST ALT Alkaline Phosphatase Total Protein Albumin Beta HCG, Quant VISION SPECIALIST - A/P (1) Hyperemesis gravidarum: Status: Acute Assessment and Plan: Nausea and vomiting has resolved with IV hydration, Reglan p.r.n. and Pepcid. Will attempt a trial of p.o. regular diet, if tolerated , discontinue IV hydr ation and IV Reglan and switch to p.o. Reglan 10 mg po q.8h p.r.n. nausea and vomiting, if tolerated consider discharge home Folic acid 1 g p.o. q.d. (400 mcg does not available) Repeat BMP with AST/ALT ordered this morning, if AST/ALT are still elevated or the patient nausea and vomiting recurrs postprandial with any suspicion of cholelithiasis , will order gallbladder ultrasound (2) Spotting in first trimester: Status: Acute Assessment and Plan: Spotting resolved, screen ordered , if Rh is negative and antibody screen is negative we will give her RhoGAM 300 mcg IM SAB warnings given to patient (3) Elevated blood pressure reading: Status: Acute Assessment and Plan: Blood pressure since yesterday evening once nausea and vomitus control has been within normal. If blood pressure elevation recurs and is consistently elevated equal or above 150/110 will consider antihypertensive treatment Time Spent With Patient Time: Total time managing care of this patient today ____ minutes. Quality Measures - LIBRARY ACQUISITIONS TECHNICIAN H&P VTE Prior VTE?: No VTE Risk Level:: Medical - moderate - high VTE Device Contraindication: N/A - Device Ordered VTE Drug Contraindication: Treatment Not Indicated
[2022-09-22 11:02] LABS: Alanine Aminotransferase 64 U/L (0-31); Anion Gap 16 (12-20); Blood Urea Nitrogen 6 mg/dL (9-16); Calcium 9.4 mg/dL (8.4-10.2); Carbon Dioxide 18 mmol/L (22-29); Chloride 104 mmol/L (96-108); Creatinine Clr Calc Pharmacy 196.2; Estimated Glomerular Filt Rate > 60; Glucose Random 90 mg/dL (60-115); Potassium 3.2 mmol/L (3.3-5.1); Sodium 135 mmol/L (135-145)
[2022-09-22 11:16] VITALS: BP 134/75; PULSE 71; RESP 18; TEMP 36.9; O2SAT 97
[2022-09-22] MEDS: Folic Acid 1 MG TABLET PO (11:39)
[2022-09-22] MEDS: Metoclopramide HCl 10 MG/2 ML VIAL IVPUSH ×2 (13:36→19:20)
--- NOTE | 2022-09-22 13:55 | MHC.CLN ---
NUTRITION PATIENT IN FIRST TRIMESTER OF . LESLY OBSERVATION FOR VOMITING. APPEARS RESOLVED AND DIET UPGRADED TO REGULAR. ANTICIPATE DISCHARGE WHEN TOLERATING DIET. RD WILL FOLLOW UP WITHIN 3 DAYS IF PATIENT REMAINS ADMITTED.
[2022-09-22 15:19] VITALS: BP 169/93; PULSE 83; RESP 18; TEMP 37.3; O2SAT 99
--- NOTE | 2022-09-22 15:58 | P.PNIM_ITS ---
Subjective Subjective Date of Service: 09/22/22 Interval History: Did not tolerate advance of diet. Continues intermittent retching Review of Systems denies chest pain Denies shortness of breath Admits to nausea and vomiting denies diarrhea Denies fever chills Physical Exam Vital Signs: Vital Signs: Last Vital Signs Temp 99.1 F 09/22/22 15:19 Pulse 83 09/22/22 15:19 Resp 18 09/22/22 15:19 BP 169/93 H 09/22/22 15:19 Pulse Ox 99 09/22/22 15:19 O2 Del Method Room Air 09/22/22 15:19 BMI result Body Mass Index 37.1 Const: Other: awake alert ill-appe Resp: Other: clear to auscultation bilaterally no rales rhonchi or wheezes Cardio: Other: no S4; positive S1-S2; no S3 murmurs rubs or gallops GI: Other: soft nontender nondistended normoactive bowel sounds Neuro: Other: cranial nerves 2-12 grossly intact as tested. Motor is 5/5 all extremities sensation intact cognition appropriate Extrem: Other: no edema bilaterally Objective Data Active Medications Folic Acid (Folic Acid 1 Mg Tablet) 1 mg PO DAILY [facility] Last Admin: 09/22/22 11:39 Dose: 1 mg Documented By: ELIZAEBTH Lactated Ringer's (Lr) 1,000 mls @ 125 mls/hr IVCONT .Q8H [facility] Last Admin: 09/22/22 07:40 Dose: 125 mls/hr Documented By: ELIZABETH Metoclopramide HCl (Metoclopramide Hcl 10 Mg/2 Ml Vial) 10 mg IVPUSH Q6H [facility] Last Admin: 09/22/22 14:14 Dose: Not Given Documented By: ELIZABETH Non-Admin Reason: prn dose given Sodium Chloride (0.9 % Sodium Chloride Flush 3 Ml Syringe) 3 ml IVFLUSH QSHIFT [facility] Last Admin: 09/22/22 07:42 Dose: Not Given Documented By: ELIZABETH Non-Admin Reason: IV Running Labs 09/21/22 17:46 09/22/22 10:41 Labs: Laboratory Results - last 24 hr 09/21/22 09/21/22 09/22/22 17:46 17:46 10:41 MCV 81.3 MCH 29.4 MCHC 36.2 H RDW 12.3 Plt Count 314 MPV 9.4 Immature Gran % (Auto) 0.3 Neut % (Auto) 84.7 H Lymph % (Auto) 9.[address] [place] % (Auto) 5.1 Eos % (Auto) 0.3 Baso % (Auto) 0.2 Lymph # (Auto) 1.5 [place] # (Auto) 0.8 Eos # (Auto) 0.0 Baso # (Auto) 0.0 Abs Immat Gran (auto) 0.05 H Absolute Neuts (auto) 13.3 H Absolute Nucleated RBC 0.000 Nucleated RBC % (auto) 0.0 Anion Gap Estim Creat Clear Calc Estimated GFR Random Glucose Calcium ALT Beta HCG, Quant [id number] Blood Type B Positive Antibody Screen NEGATIVE 09/22/22 10:41 MCV MCH MCHC RDW Plt Count MPV Immature Gran % (Auto) Neut % (Auto) Lymph % (Auto) [place] % (Auto) Eos % (Auto) Baso % (Auto) Lymph # (Auto) [place] # (Auto) Eos # (Auto) Baso # (Auto) Abs Immat Gran (auto) Absolute Neuts (auto) Absolute Nucleated RBC Nucleated RBC % (auto) Anion Gap 16 Estim Creat Clear Calc 196.2 Estimated GFR > 60 Random Glucose 90 Calcium 9.4 ALT 64 H Beta HCG, Quant Blood Type Antibody Screen Assessment and Plan (1) Hyperemesis gravidarum: Status: Acute Plan 27-year-old female 7 weeks 4 days presents with intractable vomiting over the last 2 weeks. Seen by OBGYN and referred to ER. Seen in consultation by Dr. Indira Davis . Recommendations noted. She will be admitted for same 1. Hyperemesis gravidarum - scheduled Reglan alternating with Phenergan -advance diet as tolerated - OBGYN follow-up as outpatient pneumatics full code patient will require at least overnight admission for IV fluids and antiemetics. Further stay to be determined on response to therapies Time Spent With Patient Time: Total time managing care of this patient today ____ minutes. Quality Stroke Does the patient have a stroke diagnosis?: No VTE Prior VTE?: No VTE Risk Level:: Medical - moderate - high VTE Device Contraindication: N/A - Device Ordered VTE Drug Contraindication: Treatment Not Indicated
--- NOTE | 2022-09-22 16:23 | MHC.CM.PN ---
CM MET WITH PTS XUAN AT BEDSIDE, PT IN SHOWER HE REPORTS THE PT LIVES WITH HIM AND IS INDEPENDENT SHE HAS NO DME AND NO SERVICES SHE DOES NOT HAVE A HCP SHE WAS SEEING A PROVIDER AT [facility] IN [place], BUT NOW HAS TO START A NEW PT BECAUSE IT HAS BEEN SO LONG OBSERVATION NOTICE DELIVERED DCP: HOME NO SERVICES BF TO TRANSPORT
[2022-09-22] MEDS: 0.9 % Sodium Chloride Flush 3 ML SYRINGE IVFLUSH (16:39)
[2022-09-22] MEDS: Famotidine/PF 20 MG/2 ML VIAL IVPUSH (19:45)
[2022-09-22 20:00] VITALS: BP 148/84; PULSE 74; RESP 18; TEMP 36.2; O2SAT 99
[2022-09-23] VITALS: BP 144/74; PULSE 73; RESP 16; TEMP 36.2; O2SAT 98
[2022-09-23] MEDS: Lactated Ringers 1,000 ML 125 ML IVCONT ×3 (00:02→16:50)
[2022-09-23] MEDS: Metoclopramide HCl 10 MG/2 ML VIAL IVPUSH ×3 (03:32→14:58)
[2022-09-23 04:00] VITALS: BP 135/79; PULSE 95; RESP 16; TEMP 36; O2SAT 97
[2022-09-23 07:17] VITALS: BP 142/85; PULSE 85; RESP 18; TEMP 36.7; O2SAT 98
[2022-09-23] MEDS: Folic Acid 1 MG TABLET PO (07:38)
--- NOTE | 2022-09-23 09:29 | PC.NURSE ---
Pt attempted to eat dry toast and jello for breakfast. Only took a few bites then became nauseous. Reglan given Q6hr IV
[2022-09-23 11:25] VITALS: BP 131/66; PULSE 83; RESP 16; TEMP 37.2; O2SAT 98
--- NOTE | 2022-09-23 12:15 | HO.PM.IMPN ---
Subjective Subjective Date of Service: 09/23/22 Interval History: Attempted solid food however became extremely nauseous and vomited. Review of Systems denies chest pain Denies shortness of breath Admits to nausea and vomiting denies diarrhea Denies fever chills Physical Exam Vital Signs: Vital Signs: Last Vital Signs Temp 99.0 F 09/23/22 11:25 Pulse 83 09/23/22 11:25 Resp 16 09/23/22 11:25 BP 131/66 09/23/22 11:25 Pulse Ox 98 09/23/22 11:25 O2 Del Method Room Air 09/23/22 11:25 BMI result Body Mass Index 37.1 Const: Other: awake alert ill-appe Resp: Other: clear to auscultation bilaterally no rales rhonchi or wheezes Cardio: Other: no S4; positive S1-S2; no S3 murmurs rubs or gallops GI: Other: soft nontender nondistended normoactive bowel sounds Neuro: Other: cranial nerves 2-12 grossly intact as tested. Motor is 5/5 all extremities sensation intact cognition appropriate Extrem: Other: no edema bilaterally Objective Data Active Medications Folic Acid (Folic Acid 1 Mg Tablet) 1 mg PO DAILY [facility] Last Admin: 09/23/22 07:38 Dose: 1 mg Documented By: ELIZABETH Lactated Ringer's (Lr) 1,000 mls @ 125 mls/hr IVCONT .Q8H [facility] Last Admin: 09/23/22 07:39 Dose: 125 mls/hr Documented By: ELIZABETH Metoclopramide HCl (Metoclopramide Hcl 10 Mg/2 Ml Vial) 10 mg IVPUSH Q6H [facility] Last Admin: 09/23/22 07:38 Dose: 10 mg Documented By: ELIZABETH Sodium Chloride (0.9 % Sodium Chloride Flush 3 Ml Syringe) 3 ml IVFLUSH QSHIFT [facility] Last Admin: 09/23/22 07:38 Dose: Not Given Documented By: ELIZABETH Non-Admin Reason: IV Running Labs 09/21/22 17:46 09/22/22 10:41 Assessment and Plan (1) Hyperemesis gravidarum: Status: Acute Plan 27-year-old female 7 weeks 4 days presents with intractable vomiting over the last 2 weeks. Seen by OBGYN and referred to ER. Seen in consultation by Dr. Indira Davis . Recommendations noted. She will be admitted for same 1. Hyperemesis gravidarum - scheduled Reglan alternating with Phenergan -continue IV fluids -offer diet as tolerated pneumatics full code patient will require at least overnight admission for IV fluids and antiemetics. Further stay to be determined on response to therapies Time Spent With Patient Time: Total time managing care of this patient today ____ minutes. Quality Stroke Does the patient have a stroke diagnosis?: No VTE Prior VTE?: No VTE Risk Level:: Medical - moderate - high VTE Device Contraindication: N/A - Device Ordered VTE Drug Contraindication: Treatment Not Indicated
--- NOTE | 2022-09-23 15:01 | PM.GYNPNOP ---
MANUFACTURING MECHANIC - Subjective Subjective Date of Service: 09/23/22 Interval history: Attempted solid food however became extremely nauseous and vomited. 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 scheduled vitamin B6 25 mg q.6, with Phenergan 25 mg Po Q 6 and IV Thorazine 25 mg q.4 p.r.n. nausea or vomiting. Will order gallbladder ultrasound, order TSH with reflex FT4 repeat CBC , chemistry with AST/ALT Time Spent With Patient Time: Total time managing care of this patient today ____ minutes. Quality Measures - LITHOGRAPHIC PLATEMAKER H&P VTE Prior VTE?: No VTE Risk Level:: Medical - moderate - high VTE Device Contraindication: N/A - Device Ordered VTE Drug Contraindication: Treatment Not Indicated
[2022-09-23 15:37] VITALS: BP 165/87; PULSE 79; RESP 16; TEMP 36.7; O2SAT 100
[2022-09-23 15:49] LABS: Hematocrit 38.2 % (37.0-47.0); Hemoglobin 13.9 g/dl (12.0-16.0); Mean Corpuscular HGB Conc 36.4 g/dl (31.0-35.0); Mean Corpuscular Hemoglobin 29.9 pg (27.0-33.0); Mean Corpuscular Volume 82.2 fL (80.0-98.0); Mean Platelet Volume 9.8 fL (9.4-12.3); Platelet Count 277 X10*3/uL (160-400); Red Blood Count 4.65 X10*6/uL (4.20-5.50); Red Cell Distribution Width 12.3 % (11.0-16.0); White Blood Count 12.7 X10*3/uL (4.8-10.8)
[2022-09-23 16:14] LABS: Alanine Aminotransferase 66 U/L (0-31); Albumin Level 3.8 g/dL (3.5-5.0); Alkaline Phosphatase 46 U/L (39-117); Anion Gap 16 (12-20); Aspartate Amino Transferase 28 U/L (5-31); Bilirubin Total 1.2 mg/dL (0.0-1.0); Blood Urea Nitrogen 5 mg/dL (9-16); Calcium 9.3 mg/dL (8.4-10.2); Carbon Dioxide 19 mmol/L (22-29); Chloride 101 mmol/L (96-108); Creatinine Clr Calc Pharmacy 186.6; Estimated Glomerular Filt Rate > 60; Glucose Random 96 mg/dL (60-115); Potassium 3.3 mmol/L (3.3-5.1); Sodium 133 mmol/L (135-145); Total Protein 6.6 g/dL (6.5-8.0)
[2022-09-23] MEDS: Pyridoxine HCl (Vitamin B6) 50 MG TABLET 25 MG PO ×2 (16:46→19:33)
[2022-09-23] MEDS: Famotidine/PF 20 MG/2 ML VIAL IVPUSH (19:33)
[2022-09-23] MEDS: Promethazine HCL 25 MG TABLET PO (19:34)
[2022-09-23] MEDS: 0.9 % Sodium Chloride Flush 3 ML SYRINGE IVFLUSH (19:34)
[2022-09-23 19:48] VITALS: BP 136/78; PULSE 80; RESP 18; TEMP 36.4; O2SAT 99
[2022-09-24] MEDS: Promethazine HCL 25 MG TABLET PO ×2 (03:06→08:26)
[2022-09-24] MEDS: Lactated Ringers 1,000 ML 125 ML IVCONT ×2 (03:07→10:25)
[2022-09-24 03:12] VITALS: BP 139/77; PULSE 77; RESP 18; TEMP 36.6; O2SAT 97
[2022-09-24 07:37] VITALS: BP 173/98; PULSE 77; RESP 16; TEMP 36.9; O2SAT 98
[2022-09-24] MEDS: Folic Acid 1 MG TABLET PO (08:27)
[2022-09-24] MEDS: Famotidine/PF 20 MG/2 ML VIAL IVPUSH (08:27)
[2022-09-24] MEDS: Pyridoxine HCl (Vitamin B6) 50 MG TABLET 25 MG PO (08:27)
--- NOTE | 2022-09-24 13:16 | P.DS_ITS ---
DS: Providers Provider Date of Service: 09/24/22 Date of admission: 09/23/22 14:30 Date of discharge: 09/24/22 Primary care physician: Bertha Physician DS: Diagnosis Discharge Diagnosis (1) Hyperemesis gravidarum: Status: Acute DS: Summary Hospital Course Hospital Course: 7-year-old female , 7 weeks 4 days based on ultrasound EDC 05/06/2023 who presents emergency department for evaluation of nausea, vomiting, abdominal pain and elevated blood pressure.? The patient was seen here in the emergency department on 09/17/2022 for nausea vomiting and abdominal pain.? She was treated with IV fluids and Zofran and discharged home with Zofran ODT.? Patient had an ultrasound of that time which revealed a single intrauterine which was 7 weeks and 0 days with an EDC of 05/06/2023.? Patient states that since being discharged from the emergency department she has continued to vomit.? She states she has had multiple episodes of vomiting per day and has been only able to hold on small amounts of fluid with very minimal food intake.? Hospital Course Patient was admitted with multiple regimens of antiemetics trialed. She was seen in consultation by did OBGYN. Ultrasound was unremarkable blood work negative. Over the next 72 hours she waxed and waned with her nausea however on the day of discharge she has been taking small amounts of food through the morning and wishes to be discharged. At this point time I believe he is medic ally stable for same Time Spent with Patient Time attestation: Total time managing care of this patient today ____ minutes. Discharge coordination time: Greater than 30 minutes Quality: Safe Use of Opioids Does Pt have an Active Cancer Diagnosis on the Problem List?: No Quality: Stroke Does the patient have a stroke diagnosis?: No Physical Exam Vital Signs: Vital Signs: Last Vital Signs Temp 98.5 F 09/24/22 07:37 Pulse 77 09/24/22 07:37 Resp 16 09/24/22 07:37 BP 173/98 H 09/24/22 07:37 Pulse Ox 98 09/24/22 07:37 O2 Del Method Room Air 09/24/22 07:37 BMI result Body Mass Index 37.1 Const: Other: awake alert ill-appe Resp: Other: clear to auscultation bilaterally no rales rhonchi or wheezes Cardio: Other: no S4; positive S1-S2; no S3 murmurs rubs or gallops GI: Other: soft nontender nondistended normoactive bowel sounds Neuro: Other: cranial nerves 2-12 grossly intact as tested. Motor is 5/5 all extremities sensation intact cognition appropriate Extrem: Other: no edema bilaterally DS: Data Data Completed and Pending Labs on day of discharge: Laboratory Results - last 24 hr 09/23/22 09/23/22 15:38 15:38 WBC 12.7 H RBC 4.65 Hgb 13.9 Hct 38.2 MCV 82.2 MCH 29.9 MCHC 36.4 H RDW 12.3 Plt Count 277 MPV 9.8 Absolute Nucleated RBC 0.000 Nucleated RBC % (auto) 0.0 Sodium 133 L Potassium 3.3 Chloride 101 Carbon Dioxide 19 L Anion Gap 16 BUN 5 L Creatinine 0.61 Estim Creat Clear Calc 186.6 Estimated GFR > 60 Random Glucose 96 Calcium 9.3 Total Bilirubin 1.2 H AST 28 ALT 66 H Alkaline Phosphatase 46 Total Protein 6.6 Albumin 3.8 TSH 0.60 Discharge Plan Discharge Anticipated Discharge Date/Time: 09/24/22 13:12 Patient Disposition: Home, Self-Care Discharge Diagnosis: Hyperemesis gravidarum Referrals: Physician,None [Primary Care Provider] - 1 Week Discharge Medications: New promethazine 25 mg Tablet 25 mg PO Q6H Qty: 15 0RF pyridoxine (vitamin B6) 50 mg Tablet 25 mg PO QID Qty: 120 0RF folic acid 1 mg Tablet 1 mg PO DAILY Qty: 30 0RF metoclopramide HCl [Reglan] 10 mg tablet 10 mg PO Q6H PRN (Reason: nausea and vomiting) Qty: 30 0RF famotidine [Pepcid] 20 mg tablet 20 mg PO BID Qty: 60 0RF Continued ondansetron 4 mg tablet,disintegrating 4 mg PO Q6-8H PRN (Reason: nausea and vomiting) Qty: 20 0RF pyridoxine (vitamin B6) 25 mg tablet 25 mg PO TID PRN (Reason: nausea and vomiting) Qty: 60 0RF PNV [id number] fumarate-FA [] 28 mg iron- 800 mcg tablet 1 tab PO DAILY Qty: 30 0RF Discharge Orders: Discharge Order (Routine); Ordered 09/24/22 Ordered By: Elian Pineda Diet: Advance to usual diet Activity on Discharge: As tolerated Stand Alone Forms: Patient Portal Discharge page Care Plan Goals: Utilize Phenergan and Reglan intermittently for nausea Health Concerns: Follow-up with Dr. Indira Jensen in 2 weeks Plan of Treatment: Advanced diet as tolerated Assessment: See discharge summary
--- NOTE | 2022-09-24 13:17 | MHC.CM.PN ---
PT TO DC HOME TODAY WITH NO SERVICES S/O TO TRANSPORT
== END 2022-09-24 14:07 | disposition home or self-care (01) | DRG 566 ==
LOC: HO.ED 16:31 → HO.EDOVER 17:48 → HO.S3 18:22
PROVIDERS: Obstetrics & Gynecology; Admitting Provider Hospitalist; Emergency Provider Emergency Medicine Emergency Medical Services; Visit Provider Hospitalist
DX: O21.0 Mild hyperemesis gravidarum (principal); Z3A.01 Less than 8 weeks gestation of pregnancy; Z88.0 Allergy status to penicillin; Z79.899 Other long term (current) drug therapy
CPT/HCPCS: 36415; 76705; 80048; 80053; 84443; 84460; 84702; 85025; 85027; 86850; 86900; 86901; 93005; 99221; 99284; J1200; J2405; J2765

== ENCOUNTER → 2022-09-21 09:45 | Outpatient (BNV) | payer MEDICAID, SELFPAY | PROVIDERS: Emergency Provider Emergency Medicine Emergency Medical Services; Visit Provider Internal Medicine Cardiovascular Disease | DX: I10 Essential (primary) hypertension (principal) | CPT/HCPCS: 93010 ==

== ENCOUNTER → 2022-09-21 09:52 | Outpatient (BNV) | payer MEDICAID, SELFPAY | PROVIDERS: Emergency Provider Emergency Medicine Emergency Medical Services; Visit Provider Obstetrics & Gynecology | DX: O21.0 Mild hyperemesis gravidarum (principal); O26.851 Spotting complicating pregnancy, first trimester; R03.0 Elevated blood-pressure reading, without diagnosis of hypertension | CPT/HCPCS: 99231; 99232; 99283 ==

== ENCOUNTER → 2022-09-21 09:52 | Outpatient (BNV) | payer MEDICAID, SELFPAY | PROVIDERS: Emergency Provider Emergency Medicine Emergency Medical Services; Visit Provider Hospitalist | DX: O21.0 Mild hyperemesis gravidarum (principal) | CPT/HCPCS: 99223; 99232; 99239 ==

== ENCOUNTER 2022-09-25 12:53 | Outpatient (AMB) | payer MEDICAID, SELFPAY ==
[2022-09-25 12:55] VITALS: BP 140/86; BMI 35.7
--- NOTE | 2022-09-25 12:55 | A.OFFVIS_ITS ---
Intake Vital Signs 09/25/22 12:55 09/25/22 13:36 Height 5 ft 9 in Weight 242 lb BMI 35.7 BP 140/86 H 136/86 Intake Visit Reasons: BP check Allergies apple [APPLES] Allergy (Intermediate, Verified 09/21/22 08:54) Lip numbness, Oral Numbness simon [CHERRIES] Allergy (Intermediate, Verified 09/21/22 08:54) LIP NUMBNESS, Oral numbness, Oral numbness peach Allergy (Intermediate, Verified 09/21/22 08:54) Lip numbness, Oral numbness Penicillins Allergy (Intermediate, Verified 09/21/22 08:54) HIVES TO ALL CILLINS amoxicillin Allergy (Unknown, Verified 09/21/22 08:54) Hives penicillin V Allergy (Unknown, Verified 09/21/22 08:54) Hives HPI HPI Comments History of Present Illness Details Presenting for follow-up. The patient is at 8 weeks and 1 day of gestation was admitted over the weekend for hyperemesis gravidarum, was discharged on Pepcid p.r.n., vitamin B6 and Reglan p.r.n. for nausea and vomiting. In the hospital blood pressure was labile ranged from 120-174 /62- 98. Since then, the patient has been doing well with no nausea or vomiting, no pelvic cramping or bleeding. On folic acid 400 mcg 1 tablet p.o. q.d. [facility] Medical History Acid reflux Asthma Elevated blood pressure reading Hyperemesis affecting , antepartum Missed menses Positive test Urine ketones Vomiting Surgical History History of tonsillectomy and adenoidectomy Family History Maternal Grandmother Colon cancer Social History Household Members: Spouse Housing: Apartment Do you presently have visiting nurse or other home services: No Alcohol intake: never Patient Tobacco Use Status: Never used Tobacco Substance Use Type: Marijuana service: No Review of Systems Const All systems reviewed & are unremarkable except as noted in HPI and below Reports as per HPI and Reports no additional complaints GI Reports no additional complaints Reports no additional complaints Physical Exam Vital Signs: Last Vital Signs BP 136/86 09/25/22 13:36 BMI result Body Mass Index 35.7 Assessment & Plan Assessment & Plan (1) Early stage of : Code(s): Z34.90 - Encounter for supervision of normal , unspecified, unspecified trimester (2) Borderline blood pressure: Code(s): R03.0 - Elevated blood-pressure reading, without diagnosis of hypertension Plan: Instructed the patient to take her blood pressure at home and record it and to call for any blood pressure of 160 and/ or over 110. Stay on folic acid 400 mcg p.o. q.d., Pepcid p.r.n. for heartburn/Reglan p.r.n. nausea or vomiting . SAB warnings given to patient, she is to call or go to emergency room in case of pelvic cramping and or bleeding. Discussed with the patient since she has chronic hypertension to make an appointment for care at [facility] meanwhile schedule appointment for Follow-up in 2 weeks in case the patient does have an appointment within 2 weeks for care initiation. Coding Level of Care Code Est Pt Level 3 (06710) Diagnoses Early stage of Z34.90 Borderline blood pressure R03.0
[2022-09-25 13:36] VITALS: BP 136/86
== END 2022-09-25 13:23 | disposition home or self-care (01) ==
LOC: HO.HWS 12:53
PROVIDERS: Visit Provider Obstetrics & Gynecology
DX: Z34.90 Encounter for supervision of normal pregnancy, unspecified, unspecified trimester (principal); R03.0 Elevated blood-pressure reading, without diagnosis of hypertension
CPT/HCPCS: 99213

== ENCOUNTER → 2022-09-25 12:53 | Outpatient (BNVA) | payer MEDICAID, SELFPAY | PROVIDERS: Visit Provider Obstetrics & Gynecology | DX: O26.891 Other specified pregnancy related conditions, first trimester (principal); R03.0 Elevated blood-pressure reading, without diagnosis of hypertension; Z3A.08 8 weeks gestation of pregnancy | CPT/HCPCS: 99212 ==

== ENCOUNTER 2022-10-05 12:48 | Outpatient (AMB) | payer OTHER, SELFPAY ==
[2022-10-05 13:08] VITALS: BP 120/82; BMI 35.5
--- NOTE | 2022-10-05 13:08 | A.OFFVISPN_ITS ---
Intake Vital Signs 10/05/22 13:08 Height 5 ft 9 in Weight 109 kg BMI 35.5 BP 120/82 Intake Visit Reasons: BP check Allergies apple [APPLES] Allergy (Intermediate, Verified 09/21/22 08:54) Lip numbness, Oral Numbness simon [CHERRIES] Allergy (Intermediate, Verified 09/21/22 08:54) LIP NUMBNESS, Oral numbness, Oral numbness peach Allergy (Intermediate, Verified 09/21/22 08:54) Lip numbness, Oral numbness Penicillins Allergy (Intermediate, Verified 09/21/22 08:54) HIVES TO ALL CILLINS amoxicillin Allergy (Unknown, Verified 09/21/22 08:54) Hives penicillin V Allergy (Unknown, Verified 09/21/22 08:54) Hives [facility] Medical History Acid reflux Asthma Elevated blood pressure reading Hyperemesis affecting , antepartum Missed menses Positive test Urine ketones Vomiting Surgical History History of tonsillectomy and adenoidectomy Family History Maternal Grandmother Colon cancer Social History Household Members: Spouse Housing: Apartment Do you presently have visiting nurse or other home services: No Alcohol intake: never Patient Tobacco Use Status: Never used Tobacco Substance Use Type: Marijuana service: No History History 1 Elective abortions Para Spontaneous abortions Hx # Term Pregnancies Ectopic pregnancies Hx # Pregnancies Multiple births Coding Diagnoses
--- NOTE | 2022-10-05 13:09 | A.OFFVIS_ITS ---
Intake Vital Signs 10/05/22 13:08 Height 5 ft 9 in Weight 240 lb 4.862 oz BMI 35.5 BP 120/82 Intake Visit Reasons: BP check Allergies apple [APPLES] Allergy (Intermediate, Verified 09/21/22 08:54) Lip numbness, Oral Numbness simon [CHERRIES] Allergy (Intermediate, Verified 09/21/22 08:54) LIP NUMBNESS, Oral numbness, Oral numbness peach Allergy (Intermediate, Verified 09/21/22 08:54) Lip numbness, Oral numbness Penicillins Allergy (Intermediate, Verified 09/21/22 08:54) HIVES TO ALL CILLINS amoxicillin Allergy (Unknown, Verified 09/21/22 08:54) Hives penicillin V Allergy (Unknown, Verified 09/21/22 08:54) Hives HPI HPI Comments History of Present Illness Details Presenting for follow-up at 9 weeks and 4 days of gestation with no complaints, no nausea or vomiting, no pelvic cramping and or bleeding. The patient has an appoint today at [facility] for her initial visit. Her vitamin 1 tablet p.o. q.d. all blood pressure taken at home are below 140/90 [facility] Medical History Acid reflux Asthma Elevated blood pressure reading Hyperemesis affecting , antepartum Missed menses Positive test Urine ketones Vomiting Surgical History History of tonsillectomy and adenoidectomy Family History Maternal Grandmother Colon cancer Social History Household Members: Spouse Housing: Apartment Do you presently have visiting nurse or other home services: No Alcohol intake: never Patient Tobacco Use Status: Never used Tobacco Substance Use Type: Marijuana service: No Review of Systems Const All systems reviewed & are unremarkable except as noted in HPI and below Reports as per HPI and Reports no additional complaints GI Reports no additional complaints Reports no additional complaints Physical Exam Vital Signs: Last Vital Signs BP 120/82 10/05/22 13:08 BMI result Body Mass Index 35.5 Assessment & Plan Assessment & Plan (1) Early stage of : Code(s): Z34.90 - Encounter for supervision of normal , unspecified, unspecified trimester Plan: SAB warnings given to patient, she is to call case of pelvic cramping and or bleeding or elevated blood pressure equal or above 160 and or 110 , instructions given the patient to follow-up with [facility] O[facility] appointment. All questions answered, the patient verbalized understanding Quality Reporting (2019) Adult ([facility] Body Mass Index: 35.5 Coding Level of Care Code Est Pt Level 3 (14655) Diagnoses Early stage of Z34.90
[2022-10-05 13:10] VITALS: BMI 35.5
== END 2022-10-05 14:28 | disposition home or self-care (01) ==
LOC: HO.HWS 12:48
PROVIDERS: Visit Provider Obstetrics & Gynecology
DX: Z34.90 Encounter for supervision of normal pregnancy, unspecified, unspecified trimester (principal)
CPT/HCPCS: 99213

== ENCOUNTER → 2022-10-05 12:48 | Outpatient (BNVA) | payer OTHER, SELFPAY | PROVIDERS: Visit Provider Obstetrics & Gynecology | DX: Z34.91 Encounter for supervision of normal pregnancy, unspecified, first trimester (principal) | CPT/HCPCS: 99212 ==